=== PATIENT | male | born 1960 | race Two or more races ===

== ENCOUNTER 2018-12-20 18:08 | Inpatient (IN) | payer MEDICAID, OTHER ==
[~2018-12-20] VITALS: Ht 182.9 cm; Wt 93.9 kg
--- NOTE | 2018-12-20 18:14 | NUR ---
"[id number], FROM [place] IN THE BOX, C/O CHEST PAIN FOR YEARS AND WORST TODAY +N/V x 2, 2 SPRAY OF NITRO AND 324 ASA GIVEN BY EMS, ADMITS DRINKING TODAY" PT AAOX4, -SOB, NAD NOTED, VSS ,PENDING MD RENTERIA
[2018-12-20 18:30] LABS: BASOPHILS # (AUTO) 0.1 /CMM (0.0-0.2); BASOPHILS % (AUTO) 3.3 % (0.0-2.0); EOSINOPHILS % (AUTO) 2.2 % (0.0-6.0); HEMATOCRIT 35 % (39-51); HEMOGLOBIN 11.9 g/dL (13.5-17.5); LYMPHOCYTES # (AUTO) 1.2 /CMM (0.8-4.8); MEAN CORPUSCULAR HGB CONC 34 g/dl (31.0-36.0); MEAN CORPUSCULAR VOLUME 99 fL (80-96); MONOCYTES # (AUTO) 0.5 /CMM (0.1-1.30); NEUTROPHILS # (AUTO) 1.9 /CMM (1.8-8.9); NEUTROPHILS % (AUTO) 51.5 % (43.0-81.0); PLATELET COUNT (AUTO) 220 /CMM (150-450); RED BLOOD CELL COUNT(AUTO) 3.57 MIL/uL (4.5-6.0); WHITE BLOOD COUNT (AUTO) 3.8 K/uL (4.3-11.0)
[2018-12-20 18:38] LABS: CALCIUM, SERUM 8.7 mg/dL (8.5-10.1); CARBON DIOXIDE 26 mmol/L (21-32); CHLORIDE 110 mmol/L (98-107); CREATININE 1.6 mg/dL (0.6-1.3); GLUCOSE 120 mg/dL (74-106); POTASSIUM 4.1 mmol/L (3.5-5.1); SODIUM SERUM 146 mmol/L (136-145); UREA NITROGEN, BLOOD 15 mg/dL (7-18)
--- NOTE | 2018-12-20 21:12 | NUR ---
RECIEVED BED 314-2
--- NOTE | 2018-12-20 21:48 | NUR ---
REPORT GIVEN TO JULISSA HOFF FOR FILIBERTO; PT WILL BE TRANSPORTED TO 3RD FLOOR VIA [facility]
[2018-12-20 22:00] VITALS: BP 157/108
--- NOTE | 2018-12-20 22:20 | NUR ---
DERRICK BUILDER ADMITTING NOTES RECEIVED PT FROM ER, VIA LUIS ENRIQUE, AWAKE ALERT ORIENTEDX4, ABLE TO AMBULATE TO BED. BREATHING MINIMALLY LABORED ON ROOM AIR BUT SATING AT 98%. COMPLAINS OF CHEST PRESSURE RADIATING TO THE LEFT ARM, REPORTS HE HAS NOT TAKEN HIS BP MEDS IN ABOUT 2 MONTHS BECAUSE HE DOES NOT KNOW WHICH ONES THEY ARE. APPEARS SHAKY, REPORTS TAKING LIBRIUM IN THE MORNING, TRYING TO QUIT ALCOHOL, [facility] AT [facility]. IV ACCESS ON THE L FA18G SL. BELONGINGS LIST COMPLETED, CONNECTED TO HEART MONITOR, SR IN THE 70S. BED IN LOWEST LOCKED POSITION, CALL LIGHT WITHIN REACH AT ALL TIMES, WILL CONTINUE TO MONITOR FREQUENTLY.
[2018-12-20] MEDS ORDERED: AMLO10TA7 PO (23:12)
[2018-12-20] MEDS ORDERED: CHLO25CA10 PO (23:12)
[2018-12-20] MEDS ORDERED: FOLI1TAB16 PO (23:12)
[2018-12-20] MEDS ORDERED: LISI-603 PO (23:12)
[2018-12-20] MEDS ORDERED: HYDR12.55 PO (23:12)
[2018-12-20] MEDS ORDERED: MAGNESIUM HYDROXIDE 30 ML UDC PO PRN (23:30)
[2018-12-20] MEDS ORDERED: HYDROCODONE/APAP 5/325MG 1 EACH TABLET PO PRN (23:30)
[2018-12-20] MEDS ORDERED: ONDANSETRON HCL/PF 4 MG/2 ML VIAL IVP PRN (23:30)
[2018-12-20] MEDS ORDERED: ZOLPIDEM TARTRATE 5 MG TABLET PO PRN (23:30)
[2018-12-20] MEDS ORDERED: MAG HYDROX/AL HYDROX/SIMETH 30 ML UDC PO PRN (23:30)
[2018-12-20] MEDS ORDERED: Z GUARD REMEDY 2 OZ OINT TP PRN (23:30)
[2018-12-20] MEDS ORDERED: ACETAMINOPHEN 325 MG TABLET PO PRN (23:30)
[2018-12-21] VITALS: BP 149/102
--- NOTE | 2018-12-21 00:15 | NUR ---
HOT BRAIDER NOTES - PT BP 157/102, CONTINUES TO COMPLAIN OF CHEST PAIN, SHARMIN PAREDES, ORDERED 1GM OF NITRO OINTMENT, WILL ADMINISTER PRESCRIBED.
[2018-12-21] MEDS: IV NS 0.9% 1,000 ML IV PRN ×2 (00:19→18:33)
[2018-12-21] MEDS ORDERED: NITROGLYCERIN PACKET 1 GM PACKET ONE (00:30)
[2018-12-21] MEDS: NITROGLYCERIN 30 GM TUBE TP SCH ×3 (00:34→21:09)
[2018-12-21 04:00] VITALS: BP 132/83
--- NOTE | 2018-12-21 06:27 | NUR ---
ADVERTISING ASSISTANT MANAGER CLOSING NOTES PT REMAINS IN BED, SLEEPING EASILY AROUSED TO NAME CALL. BREATHING EVEN AND UNLABORED ON ROOM AIR. IN NO APPARENT PAIN OR DISCOMFORT AT THIS TIME. IV ACCESS ON THE L FA18G NS @75ML/HR. CONNECTED TO HEART MONITOR, SR IN THE 70S. BED IN LOWEST LOCKED POSITION, CALL LIGHT WITHIN REACH AT ALL TIMES, WILL ENDORSE TO DAY NURSE FOR CO C
[2018-12-21 07:35] LABS: BASOPHILS % (AUTO) 1.1 % (0.0-2.0); HEMATOCRIT 33 % (39-51); HEMOGLOBIN 11.4 g/dL (13.5-17.5); LYMPHOCYTES # (AUTO) 1.2 /CMM (0.8-4.8); LYMPHOCYTES % (AUTO) 39.4 % (20.0-44.0); MEAN CORPUSCULAR HGB CONC 34 g/dl (31.0-36.0); MEAN CORPUSCULAR VOLUME 99 fL (80-96); MONOCYTES # (AUTO) 0.4 /CMM (0.1-1.30); MONOCYTES % (AUTO) 12.8 % (2.0-12.0); NEUTROPHILS # (AUTO) 1.3 /CMM (1.8-8.9); NEUTROPHILS % (AUTO) 43.7 % (43.0-81.0); PLATELET COUNT (AUTO) 203 /CMM (150-450); RED BLOOD CELL COUNT(AUTO) 3.37 MIL/uL (4.5-6.0)
[2018-12-21 07:54] LABS: BILIRUBIN,TOTAL 0.6 mg/dL (0.2-1.0); CALCIUM, SERUM 8.2 mg/dL (8.5-10.1); MAGNESIUM 1.5 mg/dL (1.8-2.4); PHOSPHORUS 3.4 mg/dL (2.5-4.9); POTASSIUM 3.6 mmol/L (3.5-5.1); TOTAL PROTEIN, SERUM 6.7 g/dL (6.4-8.2)
[2018-12-21 08:00] VITALS: BP 123/87
[2018-12-21 08:03] LABS: THYROID STIMULATING HORMONE 2.355 uIU/mL (0.358-3.74)
[2018-12-21] MEDS: CHLORDIAZEPOXIDE HCL 25 MG CAPSULE PO PRN ×2 (08:23→18:51)
[2018-12-21] MEDS: FOLIC ACID 1 MG TABLET PO SCH (08:24)
[2018-12-21] MEDS: ASPIRIN EC 81 MG TABLET.DR PO SCH (08:24)
[2018-12-21] MEDS: AMLODIPINE BESYLATE 10 MG TABLET PO SCH (08:24)
[2018-12-21] MEDS: LISINOPRIL (10MG) 10 MG TABLET PO SCH (08:25)
[2018-12-21] MEDS: METOPROLOL TARTRATE 50 MG TABLET PO SCH ×2 (08:25→21:09)
[2018-12-21] MEDS ORDERED: METOPROLOL TARTRATE 25 MG TABLET PO SCH (09:00)
[2018-12-21 09:23] LABS: MAGNESIUM 1.5 mg/dL (1.8-2.4)
--- NOTE | 2018-12-21 09:55 | NUR ---
RN NOTES INFORMED PHARMACY THAT NITROL OINTMENT NOT IN PATIENT CASSETTE. WILL CONTINUE TO FOLLOW UP.
[2018-12-21] MEDS: Magnesium 1GM/D5W 100ML PREMIX 100 ML IV SCH ×2 (11:02→12:04)
--- NOTE | 2018-12-21 11:14 | NUR ---
RN NOTES 12/21/18 0030 NITRO ALREADY GIVEN BY MANUAL WINDER NURSE.
--- NOTE | 2018-12-21 14:40 | NUR ---
RN NOTES PT SENT DOWN FOR [facility].
[2018-12-21] MEDS ORDERED: CT SWABBABLE VALVE TRANS SET 1 EA INFUS.SET MC ONE (15:40)
[2018-12-21] MEDS ORDERED: IOHEXOL-350 100 ML VIAL IV ONE (15:40)
[2018-12-21] MEDS ORDERED: NITROGLYCERIN 0.4 MG/TAB BOTTLE ONE (15:40)
[2018-12-21] MEDS ORDERED: IV NS 0.9% 250 ML IV ONE (15:40)
[2018-12-21] MEDS ORDERED: METOPROLOL TARTRATE INJ 5 MG/5 ML AMPUL ONE ×2 (15:40→16:00)
[2018-12-21 16:00] VITALS: BP 146/84
--- NOTE | 2018-12-21 19:00 | NUR ---
MS RN OPENING NOTES Patient received in bed, alert, oriented x 4. Breathing even and unlabored. Not in any distress, on room air. Peripheral IV infusing at 75mL/hr. No complaints of pain at this time. Safety measures in place; call light within reach, bed in low, locked position. Will continue to monitor accordingly
--- NOTE | 2018-12-21 19:01 | NUR ---
RN CLOSING NOTES PT AWAKE AND RESTING IN BED. PATIENT GIVEN LIBRIUM X2 TODAY FOR ALCOHOL WITHDRAWAL SYMPTOMS. PT HAS LEFT FA #18 IV INTACT AND PATENT, AND RIGHT AC #18 IV INTACT AND RUNNING NS @75ML/HR. SAFETY PRECAUTIONS IN PLACE, BED IN LOWEST LOCKED POSITION, X2 SIDE RAILS UP AND CALL LIGHT WITHIN REACH. WILL ENDORSE TO INDIVIDUAL SMALL GROUP INSTRUCTOR NURSE FOR CONTINUITY OF CARE.
[2018-12-21 20:00] VITALS: BP 150/80
[2018-12-21] MEDS: ATORVASTATIN 10 MG TABLET PO SCH (21:09)
[2018-12-22 04:00] VITALS: BP 146/95
[2018-12-22 06:41] LABS: CALCIUM, SERUM 8.2 mg/dL (8.5-10.1); MAGNESIUM 1.6 mg/dL (1.8-2.4)
--- NOTE | 2018-12-22 07:18 | NUR ---
Nurse Notes: received report from the night nurse Alyssa Lopez RN, resting in bed. IV is infusing NS at 75 cc per hour. Patient states takes Librium every 6 hours, medications help the pain. No request for pain medications.
--- NOTE | 2018-12-22 07:42 | NUR ---
RN CLOSING NOTES PATIENT SLEEPING IN BED, EASY TO AROUSE. BREATHING EVEN AND UNLABORED. NOT IN ANY DISTRESS. PATIENT HAS LEFT FA #18 IV INTACT AND PATENT, AND RIGHT AC #18 IV INTACT AND PATENT WITH PERIPHERAL IV RUNNING NS @75ML/HR. SAFETY PRECAUTIONS IN PLACE, BED IN LOWEST LOCKED POSITION, X2 SIDE RAILS UP AND CALL LIGHT WITHIN REACH. ENDORSED FILIBERTO TO AM SHIFT RN
[2018-12-22 08:00] VITALS: BP 139/84
[2018-12-22] MEDS: LISINOPRIL (10MG) 10 MG TABLET PO SCH (09:03)
[2018-12-22] MEDS: AMLODIPINE BESYLATE 10 MG TABLET PO SCH (09:03)
[2018-12-22] MEDS: ASPIRIN EC 81 MG TABLET.DR PO SCH (09:03)
[2018-12-22] MEDS: FOLIC ACID 1 MG TABLET PO SCH (09:04)
[2018-12-22] MEDS: METOPROLOL TARTRATE 50 MG TABLET PO SCH ×2 (09:04→21:04)
[2018-12-22] MEDS: CHLORDIAZEPOXIDE HCL 25 MG CAPSULE PO PRN ×2 (09:10→18:46)
[2018-12-22] MEDS: NITROGLYCERIN 30 GM TUBE TP SCH ×2 (09:11→21:05)
[2018-12-22] MEDS: IV NS 0.9% 1,000 ML IV PRN (09:20)
[2018-12-22] MEDS: Magnesium 1GM/D5W 100ML PREMIX 100 ML IV SCH ×2 (12:05→13:12)
--- NOTE | 2018-12-22 12:05 | NUR ---
Nurse Notes: started on magnesium bolus x 2, 1 hr each, IV is in the right antecubital, it is not in the right forearm. left arm is in the forearm.
[2018-12-22 16:00] VITALS: BP 125/93
--- NOTE | 2018-12-22 18:40 | NUR ---
Nurse Notes: assisted to the bathroom, using walker, patient stated feels wobbly, patient had bowel movement, stool was not observed. patient flushed it.
--- NOTE | 2018-12-22 19:17 | NUR ---
Nurse Notes: Dr Cox is here on floor, patient librium needs to be ordered every 6 hours scheduled, and not prn. Patient states gets shakiy.
--- NOTE | 2018-12-22 19:25 | NUR ---
Nurse Notes: Report given the the night nurse, Lynne RN, Librium is not scheduled, was seen by Dr Cox. patient still having chest pain.
[2018-12-22] MEDS ORDERED: ALPRAZOLAM 0.25 MG TABLET PO PRN (19:30)
--- NOTE | 2018-12-22 19:30 | NUR ---
MS RN NOTES RECEIVED ON BED A/O X4,NO SOB BUT STILL HAVING CHEST PAIN.SEEN AND EXAMINED BY DR RESENDIZ,WITH NEW ORDERS NOTED.IVF DISCONTINUED ORDERED.NITRO PATCH IN PLACE ON LEFT CHEST WALL.CALL LIGHT IN REACH,NEEDS ANTICIPATED.
[2018-12-22 20:00] VITALS: BP 127/85
[2018-12-22 20:43] VITALS: BP 127/85
--- NOTE | 2018-12-22 21:00 | NUR ---
MS RN NOTES DUE PO MEDS GIVEN.NITRO PATCH 1GM TO RIGHT CHEST WALL ORDERED.
[2018-12-22] MEDS: ATORVASTATIN 10 MG TABLET PO SCH (21:07)
[2018-12-23] MEDS: CHLORDIAZEPOXIDE HCL 25 MG CAPSULE PO SCH ×3 (00:10→11:10)
[2018-12-23 05:48] VITALS: BP 115/77
--- NOTE | 2018-12-23 06:38 | NUR ---
MS RN NOTES SLEPT WELL WITH LIBRIUM.DENIES CHEST PAIN.SALINE LOCK,IV DISCONTINUE BY DR RESENDIZ.POSSIBLE DISCHARGE HOME TODAY.WILL ENDORSE TO DAY NURSE FOR FILIBERTO.
--- NOTE | 2018-12-23 07:23 | NUR ---
RN OPENING NOTE PT WAS RECEIVED IN BED AT LOWEST AND LOCKED POSITION WITH SIDE RAILS UP X2, A/O X4 BREATHING EVEN AND UNLABORED ON RA, NO S/S OF ANY DISTRESS OR PAIN, IV IS PATENT AND INTACT, D/C PLANNING, SAFETY PRECAUTIONS IN PLACE, CALL LIGHT WITHIN REACH, WILL MONITOR PT ACCORDINGLY
[2018-12-23 08:00] VITALS: BP 125/85
[2018-12-23] MEDS: FOLIC ACID 1 MG TABLET PO SCH (08:13)
[2018-12-23] MEDS: ASPIRIN EC 81 MG TABLET.DR PO SCH (08:13)
[2018-12-23] MEDS: AMLODIPINE BESYLATE 10 MG TABLET PO SCH (08:14)
[2018-12-23] MEDS: METOPROLOL TARTRATE 50 MG TABLET PO SCH (08:14)
[2018-12-23] MEDS: LISINOPRIL (10MG) 10 MG TABLET PO SCH (08:14)
[2018-12-23 08:15] VITALS: BP 125/85
[2018-12-23] MEDS: NITROGLYCERIN 30 GM TUBE TP SCH (08:15)
--- NOTE | 2018-12-23 12:49 | NUR ---
DISCHARGE NOTE PT WAS D/C AT THIS TIME BACK IN MEDICALLY STABLE CONDITION. IV AND ID BAND WERE REMOVED. ALL EXITCARE, D/C PAPERWORK, AND BELONGINGS LIST WERE SIGNED, DISCUSSED AND HANDED TO THE PT. ALL BELONGINGS WERE TAKEN BY HIM WELL.MEDICATIONS WERE RETURNED TO HIM. SKIN WAS NOTED TO BE INTACT. ALL NEEDS WERE ATTENDED TO DURING HIS STAY. PT LEFT AT THIS TIME WHERE HE WAS WALKED DOWN BY ME. HE WAS GIVEN TAP CARD TO RIDE THE BUS BACK HOME AT THIS TIME
== END 2018-12-23 13:00 | disposition home or self-care (01) | DRG 241 ==
LOC: ER 18:24 → TELE 21:20 → MED 12-21 08:02
PROVIDERS: ADMIT Hospitalist; ATTEND Internal Medicine
DX: K29.70 Gastritis, unspecified, without bleeding (principal); N17.0 Acute kidney failure with tubular necrosis; E87.0 Hyperosmolality and hypernatremia; I12.9 Hypertensive chronic kidney disease with stage 1 through stage 4 chronic kidney disease, or unspecified chronic kidney disease; N18.9 Chronic kidney disease, unspecified; J98.11 Atelectasis; F41.9 Anxiety disorder, unspecified; Z79.899 Other long term (current) drug therapy; D53.9 Nutritional anemia, unspecified; F10.229 Alcohol dependence with intoxication, unspecified; F10.239 Alcohol dependence with withdrawal, unspecified; Y90.9 Presence of alcohol in blood, level not specified
CPT/HCPCS: 36415; 71045-TC; 75574; 80048-TC; 80053-TC; 80061-TC; 82728-TC; 83540-TC; 83735-TC; 84100-TC; 84443-TC; 84484-TC; 85025-TC; 85730-TC; 87081-TC; 93307-TC; G0378; J3475; J3490; J7030; J7050; Q9967

== ENCOUNTER 2019-05-01 19:08 | Emergency (ER) | payer MEDICAID, OTHER ==
[~2019-05-01] VITALS: Ht 185.4 cm; Wt 100.2 kg
[~2019-05-01 19:08] MED LIST: AMLO10TA7 PO; CHLO25CA10 PO; FOLI1TAB16 PO; LISI-603 PO
--- NOTE | 2019-05-01 19:33 | NUR ---
PT PRESENTED TO THE ER WITH A C/O L SIDED SHARP CP THAT RADIATES TO THE LUE. PT STATED THAT HIS BILATERAL HANDS ARE NUMB. PT ALSO STATED THAT HE IS HAVING BLOOD IN HIS STOOL AND HAS DIARRHEA. PT STATED THAT HE DOES NOT SMOKE, BUT HAS PROBLEMS WITH ALCOHOL. PT STATED THAT HE HAS LOST A LOT OF WEIGHT IN THE LAST YEAR AND HAS LOST HIS APPETITE. PT WAS PLACED ON THE MONITOR AND CONTINUOUS PULSE OX. IV WAS STARTED IN [facility] AND BLOOD WAS DRAWN AND SENT TO LAB. WILL CONTINUE TO MONITOR THE PT.
[2019-05-01 19:37] VITALS: BP 101/67
[2019-05-01 19:40] LABS: BASOPHILS # (AUTO) 0.1 /CMM (0.0-0.2); BASOPHILS % (AUTO) 2.4 % (0.0-2.0); EOSINOPHILS % (AUTO) 2.4 % (0.0-6.0); HEMATOCRIT 38 % (39-51); LYMPHOCYTES # (AUTO) 2.1 /CMM (0.8-4.8); LYMPHOCYTES % (AUTO) 42.1 % (20.0-44.0); MEAN CORPUSCULAR HGB CONC 34 g/dl (31.0-36.0); MEAN CORPUSCULAR VOLUME 98 fL (80-96); MONOCYTES # (AUTO) 0.5 /CMM (0.1-1.30); MONOCYTES % (AUTO) 10.5 % (2.0-12.0); NEUTROPHILS # (AUTO) 2.1 /CMM (1.8-8.9); NEUTROPHILS % (AUTO) 42.6 % (43.0-81.0); PLATELET COUNT (AUTO) 147 /CMM (150-450); RED BLOOD CELL COUNT(AUTO) 3.88 MIL/uL (4.5-6.0); WHITE BLOOD COUNT (AUTO) 4.9 K/uL (4.3-11.0)
--- NOTE | 2019-05-01 19:44 | NUR ---
DR ESPOSITO IS AT THE BEDSIDE.
[2019-05-01 19:52] LABS: ALBUMIN 3.5 g/dL (3.4-5.0); CALCIUM, SERUM 8.4 mg/dL (8.5-10.1); CARBON DIOXIDE 31 mmol/L (21-32); CHLORIDE 101 mmol/L (98-107); CREATININE 1.3 mg/dL (0.6-1.3); GLUCOSE 90 mg/dL (74-106); POTASSIUM 3.2 mmol/L (3.5-5.1); SODIUM SERUM 142 mmol/L (136-145); UREA NITROGEN, BLOOD 18 mg/dL (7-18)
--- NOTE | 2019-05-01 20:10 | NUR ---
CXR IN PROGRESS AT THE BEDSIDE
--- NOTE | 2019-05-01 20:23 | NUR ---
US TECH IS AT THE BEDSIDE FOR VENOUS DOPPLER
--- NOTE | 2019-05-01 21:00 | NUR ---
CALLED [facility]: CXR READ.
[2019-05-01 21:15] LABS: ALANINE AMINOTRANSFERASE 61 U/L (12-78); ALKALINE PHOSPHATASE 66 U/L (46-116); ASPARTATE AMINOTRANSFERASE 91 U/L (15-37); B-TYPE NATRIURETIC PEPTIDE 136 PG/ML (0-125); BILIRUBIN,DIRECT 0.2 mg/dL (0.0-0.2); BILIRUBIN,TOTAL 0.6 mg/dL (0.2-1.0); TOTAL PROTEIN, SERUM 7.3 g/dL (6.4-8.2)
--- NOTE | 2019-05-01 21:41 | NUR ---
DR ESPOSITO IS AT THE BEDSIDE SPEAKING TO THE PT.
--- NOTE | 2019-05-01 21:51 | NUR ---
HOMELESS WAIVER IS IN THE CHART. PT IS WAITING IN THE LOBBY FOR TAP CARD AND HOMELESS RESOURCES.
--- NOTE | 2019-05-01 21:51 | NUR ---
IV removed. Catheter intact and site benign. Pressure and 4x4 applied to site. No bleeding noted. Patient discharged to home in stable condition. Written and verbal after care instructions given. Patient verbalizes understanding of instruction. PT REC'D A COPY OF HIS IMAGING FINDINGS AND ALL LABS. PT AMBULATED OUT WITH A STEADY GAIT. VSS.
--- NOTE | 2019-05-01 22:21 | NUR ---
PT LEFT BEFORE REC'ING THE TAP CARD. CALLED FOR PT IN LOBBY AND OUTSIDE, BUT WAS UNABLE TO FIND PT.
== END 2019-05-01 21:55 | disposition home or self-care (01) ==
LOC: ER 19:15
DX: R07.89 Other chest pain (principal); I10 Essential (primary) hypertension; E78.00 Pure hypercholesterolemia, unspecified; Z79.899 Other long term (current) drug therapy
CPT/HCPCS: 36415; 71045-TC; 80048-TC; 80076-TC; 83880; 84484-TC; 85025-TC; 85730-TC; 93971-TC

== ENCOUNTER 2019-07-09 14:49 | Emergency (ER) | payer OTHER ==
[~2019-07-09] VITALS: Ht 182.9 cm; Wt 86.2 kg
--- NOTE | 2019-07-09 15:09 | NUR ---
PT REC'D TO ER C/O CP ON AND OFF FOR YEARS TODAY PRESSURE AND NUMBNESS FINGERS SR EKG AWAITING EVALUATION BY ER PROVIDER.
--- NOTE | 2019-07-09 15:42 | NUR ---
IV STARTED 20G RT AC LABS DRAWN SENT TO LAB
[2019-07-09 15:45] LABS: BASOPHILS # (AUTO) 0.2 /CMM (0.0-0.2); BASOPHILS % (AUTO) 2.7 % (0.0-2.0); EOSINOPHILS % (AUTO) 4.6 % (0.0-6.0); HEMATOCRIT 39 % (39-51); HEMOGLOBIN 13.2 g/dL (13.5-17.5); LYMPHOCYTES # (AUTO) 2.3 /CMM (0.8-4.8); LYMPHOCYTES % (AUTO) 35.8 % (20.0-44.0); MEAN CORPUSCULAR HGB CONC 34 g/dl (31.0-36.0); MEAN CORPUSCULAR VOLUME 102 fL (80-96); MONOCYTES # (AUTO) 0.5 /CMM (0.1-1.30); MONOCYTES % (AUTO) 7.1 % (2.0-12.0); NEUTROPHILS # (AUTO) 3.2 /CMM (1.8-8.9); NEUTROPHILS % (AUTO) 49.8 % (43.0-81.0); PLATELET COUNT (AUTO) 240 /CMM (150-450); RED BLOOD CELL COUNT(AUTO) 3.79 MIL/uL (4.5-6.0); WHITE BLOOD COUNT (AUTO) 6.4 K/uL (4.3-11.0)
[2019-07-09 15:53] LABS: CALCIUM, SERUM 9.3 mg/dL (8.5-10.1); CARBON DIOXIDE 31 mmol/L (21-32); CHLORIDE 100 mmol/L (98-107); CREATININE 1.5 mg/dL (0.6-1.3); GLUCOSE 93 mg/dL (74-106); POTASSIUM 4.2 mmol/L (3.5-5.1); SODIUM SERUM 138 mmol/L (136-145); UREA NITROGEN, BLOOD 15 mg/dL (7-18)
[2019-07-09 16:09] LABS: ALANINE AMINOTRANSFERASE 74 U/L (12-78); ALBUMIN 4.1 g/dL (3.4-5.0); ALKALINE PHOSPHATASE 77 U/L (46-116); ASPARTATE AMINOTRANSFERASE 73 U/L (15-37); BILIRUBIN,DIRECT 0.1 mg/dL (0.0-0.2); BILIRUBIN,TOTAL 0.4 mg/dL (0.2-1.0); TOTAL PROTEIN, SERUM 8.1 g/dL (6.4-8.2)
--- NOTE | 2019-07-09 17:13 | NUR ---
ultrasound of rt leg begative AWAITING EVALUATION BY ER PROVIDER.
[2019-07-09 17:48] VITALS: BP 133/72
--- NOTE | 2019-07-09 17:48 | NUR ---
PT. VERBALIZED UNDERSTANDING OF AFTERCARE INSTRUCTIONS.IV removed. Catheter intact and site benign. Pressure and 4x4 applied to site. No bleeding noted.
== END 2019-07-09 17:49 | disposition home or self-care (01) ==
LOC: ER 14:50
DX: R60.0 Localized edema (principal); K92.2 Gastrointestinal hemorrhage, unspecified; M54.10 Radiculopathy, site unspecified; I10 Essential (primary) hypertension; F32.9 Major depressive disorder, single episode, unspecified; Z79.899 Other long term (current) drug therapy
CPT/HCPCS: 36415; 71045-TC; 80048-TC; 80076-TC; 84484-TC; 85025-TC; 85730-TC; 86850-TC; 93970-TC

== ENCOUNTER 2020-06-03 16:54 | Inpatient (IN) | payer OTHER ==
[~2020-06-03] VITALS: Ht 182.9 cm; Wt 95.3 kg
[~2020-06-03 16:54] MED LIST changes: +AMLO-213 PO; -AMLO10TA7 PO; -LISI-603 PO; +LISI20TA30 PO
--- NOTE | 2020-06-03 16:54 | NUR ---
PT [id number] PT STS "FEEL LIKE MY THROAT IS CLOSING" PT IS AAOX4, NOT IN RESPIRATORY DISTRESS, HOOKED TO RESIDENTIAL DIRECT SUPPORT PROFESSIONAL, KEPT RESTED AND COMFORTABLE. WILL CONTINUE TO MONITOR.
--- NOTE | 2020-06-03 17:05 | NUR ---
VICTORINA ANDREWS CEMENT OR CONCRETE FINISHING SUPERVISOR AT BEDSIDE FOR EVAL.
[2020-06-03] MEDS ORDERED: methylPREDNISolone SOD SUCC 125 MG/2ML VIAL ONE (17:08)
[2020-06-03] MEDS ORDERED: diphenhydrAMINE HCL 50 MG/ML VIAL ONE ×2 (17:08→23:16)
[2020-06-03] MEDS ORDERED: FAMOTIDINE/PF INJ 20 MG/2 ML VIAL IV ONE ×3 (17:09→23:17)
--- NOTE | 2020-06-03 17:10 | NUR ---
IV LINE ESTABLISHED.
[2020-06-03] MEDS ORDERED: LORAZEPAM INJ 2 MG/ML VIAL ONE ×2 (17:22→21:42)
[2020-06-03] MEDS ORDERED: APIX2.5T PO (17:28)
[2020-06-03] MEDS ORDERED: MONT10TA22 PO (17:28)
[2020-06-03] MEDS ORDERED: ALBU18HF2 IH (17:28)
[2020-06-03] MEDS ORDERED: BECL10.62 IH (17:28)
[2020-06-03] MEDS ORDERED: HYDR12.55 PO (17:28)
[2020-06-03] MEDS ORDERED: CEFTRIAXONE 1GM BAG (ER ONLY) 1 GM/50 ML PIGGYBACK IV ONE (17:30)
[2020-06-03] MEDS ORDERED: methylPREDNISolone SOD SUCC 125 MG/2ML VIAL IV ONE (17:30)
[2020-06-03] MEDS ORDERED: IV NS 0.9% 1,000 ML IV ONE ×2 (17:30→22:00)
[2020-06-03] MEDS ORDERED: diphenhydrAMINE HCL 50 MG/ML VIAL IV ONE ×2 (17:30→23:30)
[2020-06-03] MEDS ORDERED: LORAZEPAM INJ 2 MG/ML VIAL IV ONE ×2 (17:30→22:00)
[2020-06-03] MEDS ORDERED: CEFTRIAXONE 1GM BAG (ER ONLY) 50 ML IV ONE (17:34)
[2020-06-03 17:36] LABS: BASOPHILS # (AUTO) 0.1 /CMM (0.0-0.2); BASOPHILS % (AUTO) 1.2 % (0.0-2.0); EOSINOPHILS % (AUTO) 0.6 % (0.0-6.0); HEMATOCRIT 43 % (39-51); HEMOGLOBIN 14.5 g/dL (13.5-17.5); LYMPHOCYTES # (AUTO) 1.3 /CMM (0.8-4.8); MEAN CORPUSCULAR HGB CONC 34 g/dl (31.0-36.0); MEAN CORPUSCULAR VOLUME 100 fL (80-96); MONOCYTES # (AUTO) 0.5 /CMM (0.1-1.30); MONOCYTES % (AUTO) 8.7 % (2.0-12.0); NEUTROPHILS # (AUTO) 4.1 /CMM (1.8-8.9); NEUTROPHILS % (AUTO) 67.5 % (43.0-81.0); PLATELET COUNT (AUTO) 154 /CMM (150-450); RED BLOOD CELL COUNT(AUTO) 4.34 MIL/uL (4.5-6.0); WHITE BLOOD COUNT (AUTO) 6.1 K/uL (4.3-11.0)
--- NOTE | 2020-06-03 17:40 | NUR ---
COVID SPECIMEN OBTAINED AND SENT TO LAB.
[2020-06-03 18:12] LABS: ALANINE AMINOTRANSFERASE 99 U/L (12-78); ALBUMIN 4.1 g/dL (3.4-5.0); ALKALINE PHOSPHATASE 112 U/L (46-116); ASPARTATE AMINOTRANSFERASE 133 U/L (15-37); BILIRUBIN,DIRECT 0.4 mg/dL (0.0-0.2); BILIRUBIN,TOTAL 1.2 mg/dL (0.2-1.0); CARBON DIOXIDE 24 mmol/L (21-32); CHLORIDE 97 mmol/L (98-107); CREATININE 1.6 mg/dL (0.6-1.3); GLUCOSE 69 mg/dL (74-106); POTASSIUM 3.3 mmol/L (3.5-5.1); SODIUM SERUM 138 mmol/L (136-145); TOTAL PROTEIN, SERUM 8.5 g/dL (6.4-8.2); UREA NITROGEN, BLOOD 18 mg/dL (7-18)
--- NOTE | 2020-06-03 18:20 | NUR ---
RECEIVED RESULT FROM LAB: RAPID COVID NEGATIVE
[2020-06-03] MEDS ORDERED: CYAN-51 PO (18:28)
--- NOTE | 2020-06-03 18:33 | NUR ---
PAGED [facility].
--- NOTE | 2020-06-03 19:24 | NUR ---
[facility] CALLED FOR HIGHER LEVEL OF CARE. NO BEDS AVAILABLE.
--- NOTE | 2020-06-03 19:44 | NUR ---
PATIENT UNABLE TO PROVIDE URINE AT THIS TIME. WILL TRY AGAIN.
--- NOTE | 2020-06-03 19:54 | NUR ---
[facility] CALLED FOR HIGHER LEVEL OF CARE. NO BEDS AVAILABLE. FACESHEET AND CLINICALS FAXED TO [phone]
[2020-06-03] MEDS ORDERED: CLINDAMYCIN 900 MG/6 ML VIAL ONE (19:59)
[2020-06-03] MEDS ORDERED: CLINDAMYCIN IV RTU IN D5W 900 MG/50 ML PIGGYBACK IV ONE (20:00)
--- NOTE | 2020-06-03 20:12 | NUR ---
SPOKE WITH SANA FROM [facility] TRANSFER LINE, WILL FAX CLINICAL INFORMATION PER REQUEST AT THIS TIME
--- NOTE | 2020-06-03 20:22 | NUR ---
SPOKE WITH SUREKHA FROM [facility], NO ENT MOLD MAINTENANCE TECHNICIAN
--- NOTE | 2020-06-03 21:07 | NUR ---
CALL BACK FROM [facility] TRANSFER VICTOR. NO ICU BED AVAILABLE FOR PT.
--- NOTE | 2020-06-03 21:07 | NUR ---
Indra mccormick in [facility] - 06/03/20 at 2150 by DANIELLE CALL BACK FROM [facility]. ICU BED AVAILABLE FOR PT.
--- NOTE | 2020-06-03 21:11 | NUR ---
ATTEMPTED TO CALL [facility]. NO ANSWER
--- NOTE | 2020-06-03 21:20 | NUR ---
NOTED HYPERTENSION AND TACHYCARDIA. PT DENIES CP/SOB AT THIS TIME. DR. KOENIG MADE AWARE
--- NOTE | 2020-06-03 21:53 | NUR ---
[facility] ([facility] CALLED FOR HIGHER LEVEL OF CARE. ONLY ACCEPTING BURN OR OB.
[2020-06-03] MEDS ORDERED: CLONIDINE HCL 0.1 MG TABLET ONE (21:57)
--- NOTE | 2020-06-03 21:57 | NUR ---
[facility] CALLED FOR HIGHER LEVEL OF CARE. NO ENT AVAILABLE.
[2020-06-03] MEDS ORDERED: CLONIDINE HCL 0.1 MG TABLET PO ONE (22:00)
[2020-06-03] MEDS ORDERED: diphenhydrAMINE HCL 50 MG/ML VIAL IV SCH (23:00)
[2020-06-03] MEDS ORDERED: IV D5/0.45 NACL 1,000 ML IV ONE (23:00)
--- NOTE | 2020-06-03 23:24 | NUR ---
INFORMED DR. KOENIG BENADRYL 50MG IV WAS ADMINISTERED PRIOR TO DC ORDERS. PT STILL ON CONTINOUS FILAMENT TESTER AND PULSE OX. RESPIRATIONS EVEN AND UNLABORED. NO ACUTE DISTRESS NOTED AT THIS TIME. WILL CONTINUE TO MONITOR
[2020-06-03] MEDS: FAMOTIDINE/PF INJ 20 MG/2 ML VIAL IV SCH (23:26)
[2020-06-04] VITALS (30 sets, daily range): BP systolic 69–203; BP diastolic 43–187
[2020-06-04] MEDS ORDERED: methylPREDNISolone SOD SUCC 125 MG/2ML VIAL IV SCH
--- NOTE | 2020-06-04 01:50 | NUR ---
NOTED TACHYCARDIA AND DIAPHORETIC. ALSO NOTED MORE NOTICABLE "GURGLING SOUND" WHILE PATIENT IS SPEAKING. PT ABLE TO SPEAK IN FULL SENTENCES, O2 SAT 98% ROOM AIR. RESPIRATIONS EVEN AND UNLABORED. NO ACUTE DISTRESS NOTED AT THIS TIME. DR. ARREOLA AT BEDSIDE FOR EVALUATION. PT STILL ON MONITOR, WILL CONTINUE TO MONITOR
[2020-06-04] MEDS ORDERED: LORAZEPAM INJ 2 MG/ML VIAL ONE ×4 (01:53→05:53)
[2020-06-04] MEDS ORDERED: LORAZEPAM INJ 2 MG/ML VIAL IV ONE ×3 (02:00→06:00)
--- NOTE | 2020-06-04 03:00 | NUR ---
PT PULLED OUT IV. IV removed. Catheter intact and site benign. Pressure and 4x4 applied to site. No bleeding noted. New IV inserted L AC 18g
--- NOTE | 2020-06-04 04:12 | NUR ---
rec'd a call from Alex at [facility]. ETA fo [facility] at 0730
--- NOTE | 2020-06-04 05:40 | NUR ---
PT CONSTANTLY ATTEMPTING TO GET OUT OF BED. NOTED TREMORS. DR. ARREOLA MADE AWARE
[2020-06-04] MEDS ORDERED: OLANZAPINE 10 MG VIAL IM ONE ×2 (06:13→06:30)
--- NOTE | 2020-06-04 06:35 | NUR ---
PT AWAKE, SPEAKING INCOHERENTLY. CONTANTLY ATTEMPTING TO GET OUT OF BED BUT REDIRECTABLE. NOTED TREMORS, TACHYCARDIA, AND HYPERTENSION. PT ALSO DIAPHORETIC. DR. MARCUS MADE AWARE. PT STILL ON CONTINOUS INSURANCE AGENTS SUPERVISOR AND PULSE OX, WILL CONTINUE TO MONITOR
[2020-06-04] MEDS ORDERED: HALOPERIDOL LACTATE INJ 5 MG/ML VIAL ONE (06:39)
[2020-06-04] MEDS ORDERED: HALOPERIDOL LACTATE INJ 5 MG/ML VIAL IM ONE (07:00)
--- NOTE | 2020-06-04 07:19 | NUR ---
CALLED [facility], PAGED DR. HOLLIDAY
--- NOTE | 2020-06-04 07:28 | NUR ---
REPORT GIVEN TO LUIS EDUARDO OLMSTEAD FOR FILIBERTO
--- NOTE | 2020-06-04 07:30 | NUR ---
PATIENT SEEN AND EXAMINED BY DR. HOLLIDAY.
--- NOTE | 2020-06-04 07:46 | NUR ---
ICU 259
--- NOTE | 2020-06-04 07:46 | NUR ---
PATIENT AROUSABLE TO STIMULI. ABLE TO VERBALIZE NEEDS. INSERTED A SANDHU CATH FR 16, ORDERED BY DR. MARCUS. PATIENT KEPT COMFORTABLE.
--- NOTE | 2020-06-04 07:49 | NUR ---
PATIENT IS ON 3LPM VIA NC WITH SPO2 OF 99%. NO RESPIRATORY DISTRESS NOTED.
--- NOTE | 2020-06-04 07:59 | NUR ---
REPORT GIVEN TO LUIS EDUARDO FORD FOR FILIBERTO
--- NOTE | 2020-06-04 07:59 | NUR ---
Indra mccormick in [facility] - 06/04/20 at 0811 by BILLIE TASKEN UP TO ASSIGNED ROOM
[2020-06-04] MEDS ORDERED: MAGNESIUM HYDROXIDE 30 ML UDC PO PRN (08:00)
[2020-06-04] MEDS ORDERED: LORAZEPAM INJ 2 MG/ML VIAL IV PRN (08:00)
[2020-06-04] MEDS ORDERED: ZOLPIDEM TARTRATE 5 MG TABLET PO PRN (08:00)
[2020-06-04] MEDS ORDERED: MAG HYDROX/AL HYDROX/SIMETH 30 ML UDC PO PRN (08:00)
[2020-06-04] MEDS ORDERED: ONDANSETRON HCL/PF 4 MG/2 ML VIAL IVP PRN (08:00)
[2020-06-04] MEDS ORDERED: Z GUARD REMEDY 2 OZ OINT TP PRN (08:00)
[2020-06-04] MEDS ORDERED: HYDROCODONE/APAP 5/325MG TABLET PO PRN (08:00)
[2020-06-04] MEDS ORDERED: MORPHINE SULFATE INJ 2 MG/ML DISP.SYRIN IV PRN (08:00)
--- NOTE | 2020-06-04 08:33 | NUR ---
PATIENT TRANSFERRED TO ROOM 250 VIA ACLS PROTOCOL. IN STABLE CONDITION. ON 3LPM VIA NC WITH SPO2 OF 98%. BELONGINGS TRANSFERRED WELL. ENDORSED TO LOGAN HOFF.
--- NOTE | 2020-06-04 08:45 | NUR ---
RN NOTES PT RECEIVED FROM ER IN ROOM 250, RESTLESS AND CONFUSED, GARBLED SPEECH, TRYING TO GET OUT OF THE BED, KICKING AND PULLING AN PUSHING, HR IN 110'S , ST, SBP IN 190'S , DR MIYA SNEED, ORDER RECEIVED FOR SOFT RESTRAINS , SANDHU DRINING TO GRAVITY, L HAND AND L AC IV SITES CLEAN, DRY AND INTACT, SR UP x3, CALL LIGHT WITHIN EASY REACH, BED LOCKED AND IN LOWEST POSITION, CONTINUE TO MONITOR.
[2020-06-04] MEDS ORDERED: CLINDAMYCIN 900 MG in IV D5W 100 ML IV ONE (09:00)
[2020-06-04] MEDS ORDERED: ZOSYN IVPB 3.375 G in IV D5W 50ml IV ONE (09:00)
[2020-06-04] MEDS: LORAZEPAM INJ 2 MG/ML VIAL IV PRN ×5 (09:05→23:53)
[2020-06-04] MEDS: FAMOTIDINE/PF INJ 20 MG/2 ML VIAL IV SCH ×2 (09:05→20:28)
[2020-06-04] MEDS: methylPREDNISolone SOD SUCC 125 MG/2ML VIAL IV SCH ×4 (09:05→20:28)
[2020-06-04] MEDS: Potassium Chloride 10 MEQ in IV D5/0.45 NACL 1,000 ML IV SCH ×2 (09:35→18:36)
--- NOTE | 2020-06-04 10:00 | NUR ---
RN NOTES DR HOLLIDAY NOTIFED REGARDING HIGH BP.
[2020-06-04] MEDS ORDERED: hydrALAZINE HCL IV 20 MG VIAL IV PRN (12:00)
[2020-06-04] MEDS: ENALAPRILAT DIHYD. (2.5MG/2ML) 1.25 MG/ML VIAL IV PRN ×2 (14:02→20:42)
[2020-06-04] MEDS: PIPERACILLIN /TAZOBACTAM 3.375 G in IV D5W 100 ML IV SCH (16:49)
[2020-06-04] MEDS: CLONIDINE HCL 0.3 MG/24H PTWK 1 EA PATCH TD SCH (16:49)
[2020-06-04] MEDS ORDERED: methylPREDNISolone SOD SUCC 125 MG/2ML VIAL IV ONE (17:00)
--- NOTE | 2020-06-04 17:00 | NUR ---
RN NOTES PT'S BLOOD PRESSURE STILL HIGH, DR HOLLIDAY AND MARYBETH SNEED .
--- NOTE | 2020-06-04 18:54 | NUR ---
RN CLOSING NOTES PATIENT IS SENSITIVE TO CHELO AND TITRATED TO 1.1 THIS SHIFT, PRECEDEX NOW AT 0.3, SIMV FAILED THIS MORNING SO BACK TO AC SETTINGS WITH LOWER FI02 OF 28% AND PEEP OF 5. URINE OUTPUT IS BORDERLINE. DRESSINGS CHANGED AND PHOTOS TAKEN. WOUND CARE CONSULT. TOLERATING FEEDS. NO OTHER CHANGES. ENDORSED TO NIGHT RN. Addendum: 06/04/20 at 1900 by CORINA SWAIN RN PLS DISREGARD ABOVE CHARTING. CHARTED FOR THE WRONG PATIENT.
--- NOTE | 2020-06-04 19:03 | NUR ---
RN CLOSING NOTES PATIENT STABLE, LESS AGITATED, BILATERAL SOFT WRIST RESTRAINT ON FOR PATIENT'S SAFETY, BED ALARMS ON, IVF RUNNING AT 100ML/HR, MD AWARE OF BP, SIDE RAIL UP X3, BED LOCKED IN LOWEST POSITION, NO, S/S OF SEIZURE NOTED, WILL ENDORSE CONTINUITY OF CARE TO NIGHT NURSE.
--- NOTE | 2020-06-04 19:50 | NUR ---
RN OPENING NOTES RECEIVED PT IN BED. CONFUSED. PT IS ON 2L OF O2 VIA NC, TOLERATING WELL. SATURATION IS 98%. NO S/S OF RESP DISTRESS OR SOB. PT DOES HAS PRESENCE OF TREMORS, SHAKINESS. HX OF ALCOHOL ABUSE, DX DELIRIUM TREMENS. PT IS AFEBRILE, PT DENIES PAIN. PT IS NPO PEND SWALLOW EVAL ORDERED FOR TOMORROW. IV SITES FLUSHED. PT HAS D5 1/2 N2 + 10MEQ KCL NO S/S OF INFILTRATION NOTED. PT HAS SANDHU CATH DRAINING TO GRAVITY. YELLOW WITH SEDIMENT. PT ON SOFT RAYA WRIST RESTRAINTS. SKIN CHECKED. CIRCULATION CHECKED. WILL CONT TO ASSESS NEEDED. SAFETY MEASURES IN PLACE. SEIZURE PRECAUTION IN PLACE. PADDED SIDE RAILS. HOB ELEVATED. SIDE RAILS UP X3, BED LOCKED IN LOWEST POSITION WITH BED ALARM ON. CALL LIGHT WITHIN REACH.
[2020-06-05] VITALS (46 sets, daily range): BP systolic 149–217; BP diastolic 87–155
[2020-06-05] MEDS: PIPERACILLIN /TAZOBACTAM 3.375 G in IV D5W 100 ML IV SCH ×3 (00:01→16:48)
[2020-06-05] MEDS: ENALAPRILAT DIHYD. (2.5MG/2ML) 1.25 MG/ML VIAL IV PRN ×4 (02:52→18:34)
[2020-06-05 04:54] LABS: BASOPHILS % (AUTO) 0.1 % (0.0-2.0); HEMATOCRIT 39 % (39-51); LYMPHOCYTES # (AUTO) 0.3 /CMM (0.8-4.8); LYMPHOCYTES % (AUTO) 6.5 % (20.0-44.0); MEAN CORPUSCULAR HGB CONC 33 g/dl (31.0-36.0); MEAN CORPUSCULAR VOLUME 101 fL (80-96); MONOCYTES # (AUTO) 0.2 /CMM (0.1-1.30); MONOCYTES % (AUTO) 4.5 % (2.0-12.0); NEUTROPHILS # (AUTO) 4.6 /CMM (1.8-8.9); NEUTROPHILS % (AUTO) 88.9 % (43.0-81.0); PLATELET COUNT (AUTO) 125 /CMM (150-450); RED BLOOD CELL COUNT(AUTO) 3.85 MIL/uL (4.5-6.0); WHITE BLOOD COUNT (AUTO) 5.2 K/uL (4.3-11.0)
[2020-06-05 05:11] LABS: ALBUMIN 3.4 g/dL (3.4-5.0); BILIRUBIN,DIRECT 0.3 mg/dL (0.0-0.2); BILIRUBIN,TOTAL 0.9 mg/dL (0.2-1.0); CALCIUM, SERUM 8.2 mg/dL (8.5-10.1); CREATININE 1.2 mg/dL (0.6-1.3); MAGNESIUM 1.4 mg/dL (1.8-2.4); PHOSPHORUS 2.8 mg/dL (2.5-4.9); POTASSIUM 3.9 mmol/L (3.5-5.1); TOTAL PROTEIN, SERUM 7.3 g/dL (6.4-8.2)
--- NOTE | 2020-06-05 07:18 | NUR ---
RN CLOSING NOTES PT IN SAME CONDITION, NO SIGNIFICANT CHANGE. AT THIS TIME PT STILL ON 2L OF O2, NO RESP DISTRESS. PT IS CONFUSED. RESTLESS, OCCASIONALLY KICKS OUT. STILL ON SOFT RAYA WRIST RESTRAINTS. BED BATH DONE. LINENS AND GOWN CHANGED. TOWARDS END OF SHIFT, HEMATURIA PRESENT. ENDORSED TO AM NURSE. PT IVF RAN OUT, CALLED PHARMACY SAYS WILL BRING UP WHEN READY. PT DENIES PAIN. AFEBRILE. SAFETY MEASURES IN PLACE. HOB ELEVATED. SIDE RAILS UP. NO S/S OF SEIZURE ACTIVITY. BED LOCKED IN LOWEST POSITION BED ALARM ON. ENDORSED TO AM NURSE FOR CONT OF CARE.
--- NOTE | 2020-06-05 07:35 | NUR ---
RECEIVED PATIENT IN BED. PATIENT ON RESTRAINTS, IN CONFUSED STATE DUE TO WITHDRAWAL. PATIENT ON 2L O2 VIA NC, SATURATING WELL. PATIENT ON MOLD SETTER, NSR NOTED WITH HR IN 90S, BUT PER REPORT HR GOES INTO 110S. PATIENT FC IN PLACE, INTACT, DRAINING TO GRAVITY. PATIENT NPO STATUS ACKNOWLEDGED. PATIENT L AC IV ACCESS AND L HAND IV ACCESS INTACT, PATENT. PATIENT RESTRAINTS IN PLACE. PATIENT SAFETY MEASURES MAINTAINED. SITTER IN PLACE. WILL CONTINUE TO MONITOR.
[2020-06-05] MEDS: methylPREDNISolone SOD SUCC 125 MG/2ML VIAL IV SCH ×4 (08:11→20:15)
[2020-06-05] MEDS: FAMOTIDINE/PF INJ 20 MG/2 ML VIAL IV SCH ×2 (08:11→20:15)
[2020-06-05] MEDS: Potassium Chloride 10 MEQ in IV D5/0.45 NACL 1,000 ML IV SCH ×3 (08:12→23:54)
[2020-06-05] MEDS: LORAZEPAM INJ 2 MG/ML VIAL IV PRN ×5 (08:13→23:24)
[2020-06-05] MEDS: Magnesium 1GM/D5W 100ML PREMIX 100 ML IV SCH ×4 (11:28→14:53)
--- NOTE | 2020-06-05 11:58 | NUR ---
SS consult received for Alcohol withdrawal. SW called the unit to determine pt.'s level of consciousness. Per pt.'s nurse, the pt. is not intubated however, not interviewable at this time. SW will attempt to interview patient at a later time.
[2020-06-05] MEDS: NITROGLYCERIN PACKET 1 GM PACKET TOP SCH ×3 (12:21→23:23)
--- NOTE | 2020-06-05 13:36 | NUR ---
PATIENT POTASSIUM CHLORIDE ADMINISTERED LATE THIS AM DUE TO LATE DELIVERY AND PATIENT NON-COMPLIANCE. SO PATIENT CURRENT BAG OF POTASSIUM CHLORIDE STILL FULL. NON-ADMIN SCHEDULED BAG FOR 1409.
--- NOTE | 2020-06-05 18:29 | NUR ---
PATIENT IN BED. PATIENT ON RESTRAINTS, IN CONFUSED STATE DUE TO WITHDRAWAL. PATIENT ON 4L O2 VIA NC, SATURATING WELL. PATIENT ON ENVIRONMENTAL SERVICES AIDE, ST NOTED WITH HR IN 110S. PATIENT FC IN PLACE, INTACT, DRAINING TO GRAVITY. PATIENT NPO STATUS ACKNOWLEDGED. PATIENT L AC IV ACCESS AND L HAND IV ACCESS INTACT, PATENT. PATIENT RESTRAINTS IN PLACE. PATIENT SAFETY MEASURES MAINTAINED. SITTER IN PLACE. WILL ENDORSE PLAN OF CARE TO ONCOMING SHIFT
--- NOTE | 2020-06-05 19:05 | NUR ---
RECEIVED PT IN BED. CONFUSED. PT IS ON 2L OF O2 VIA NC, TOLERATING WELL. SATURATION IS 98%. NO S/S OF RESP DISTRESS OR SOB. PT DOES HAS PRESENCE OF TREMORS, SHAKINESS. HX OF ALCOHOL ABUSE, DX DELIRIUM TREMENS. PT IS AFEBRILE, NO PAIN NOTED. PT IS NPO PENDING SWALLOW EVAL . IV SITES FLUSHED. PT HAS D5 1/2 N2 + 10MEQ KCL NO S/S OF INFILTRATION NOTED. PT HAS SANDHU CATH DRAINING TO GRAVITY. TEA COLOR WITH SEDIMENT. PT ON SOFT RAYA WRIST RESTRAINTS. SKIN CHECKED. CIRCULATION CHECKED.SITTER AT BED SIDE . SAFETY MEASURES IN PLACE. SEIZURE PRECAUTION IN PLACE. PADDED SIDE RAILS. HOB ELEVATED. SIDE RAILS UP X3, BED LOCKED IN LOWEST POSITION WITH BED ALARM ON. CALL LIGHT WITHIN REACH.
--- NOTE | 2020-06-05 19:38 | NUR ---
REPORTED TO ONCALL DR. BROOKE THAT PT HAVE A HIGH BLOOD PRESSURE IS HIGH FOR A WHOLE DAY WITH LATEST BP 188/150 HR 100 AND PT IS NPO AND DID NOT PASS ST EVAL WITH ORDER MADE FOR LABETALOL 10MG Q4H PRN FOR SBP> 160 NOTED AND CARRIED OUT
[2020-06-05] MEDS: LABETALOL HCL IV 100MG VIAL IV PRN (20:15)
[2020-06-06] VITALS (57 sets, daily range): BP systolic 115–224; BP diastolic 60–149
--- NOTE | 2020-06-06 | NUR ---
REPORTED TO WORKFORCE MANAGEMENT MANAGER DR. IBANEZ THAT PT IS SO AGITATED DESPITE THE ATIVAN 4MG IV Q2H AND HE ALSO DONT HAVE AN OUTPUT SINCE THE BEGINNING OF THE SHIFT WITH ORDER TO INCREASE THE IVF TO 150ML/HR AND GIVE EXTRA ATIVAN 2MG IV X1 NOW NOTED AND CARRIED OUT
[2020-06-06] MEDS: LABETALOL HCL IV 100MG VIAL IV PRN ×4 (00:30→18:28)
[2020-06-06] MEDS: PIPERACILLIN /TAZOBACTAM 3.375 G in IV D5W 100 ML IV SCH ×3 (00:30→17:13)
[2020-06-06] MEDS ORDERED: LORAZEPAM INJ 2 MG/ML VIAL IV ONE (00:30)
[2020-06-06] MEDS: LORAZEPAM INJ 2 MG/ML VIAL IV PRN ×2 (01:39→03:34)
--- NOTE | 2020-06-06 03:31 | NUR ---
PT STILL VERY AGITATED Q2H PRN ATIVAN ALWAYS ADMINISTERED SITTER AT BED SIDE SPO2 98% STILL BP IS HIGH WILL CONT TO MONITOR
[2020-06-06] MEDS: ENALAPRILAT DIHYD. (2.5MG/2ML) 1.25 MG/ML VIAL IV PRN (03:36)
[2020-06-06 04:44] LABS: HEMATOCRIT 38 % (39-51); HEMOGLOBIN 12.7 g/dL (13.5-17.5); LYMPHOCYTES # (AUTO) 0.3 /CMM (0.8-4.8); LYMPHOCYTES % (AUTO) 5.5 % (20.0-44.0); MEAN CORPUSCULAR HGB CONC 34 g/dl (31.0-36.0); MEAN CORPUSCULAR VOLUME 100 fL (80-96); MONOCYTES # (AUTO) 0.3 /CMM (0.1-1.30); NEUTROPHILS # (AUTO) 5.2 /CMM (1.8-8.9); NEUTROPHILS % (AUTO) 88.5 % (43.0-81.0); PLATELET COUNT (AUTO) 128 /CMM (150-450); RED BLOOD CELL COUNT(AUTO) 3.79 MIL/uL (4.5-6.0); WHITE BLOOD COUNT (AUTO) 5.8 K/uL (4.3-11.0)
--- NOTE | 2020-06-06 04:49 | NUR ---
PT IS SLEEPING BUT HIS SPO2 DROPS TO 85% PUT TO O2 6L VIA MASK SPO2 NOW 91% WILL CONT TO MONITOR
[2020-06-06 04:59] LABS: CALCIUM, SERUM 8.1 mg/dL (8.5-10.1); CREATININE 1.5 mg/dL (0.6-1.3); POTASSIUM 3.9 mmol/L (3.5-5.1)
[2020-06-06] MEDS: NITROGLYCERIN PACKET 1 GM PACKET TOP SCH ×4 (05:22→23:49)
--- NOTE | 2020-06-06 06:50 | NUR ---
PT SLEEPING ON BED STILL ON O2 6L VIA MASK SPO2 100% ON SINUS RHYTHM 70'S SITTER AT BED SIDE STILL WITH BILATERAL WRIST RESTRAINTS NO SIGNIFICANT CHANGES ON CONDITION NOTED, ALL NEEDS ATTENDED, PRN FOR ANXIETY AND AGITATION WAS GIVEN BED ON LOWEST POSITION AND LOCKED SIDE RAILS UP X2 WILL ENDORSED TO AM SHIFT NURSE
[2020-06-06] MEDS: Potassium Chloride 10 MEQ in IV D5/0.45 NACL 1,000 ML IV SCH ×3 (07:01→20:12)
--- NOTE | 2020-06-06 07:30 | NUR ---
CLAIMS TECHNICIAN OPENING NOTE PT SLEEPING IN BED STILL ON O2 6L VIA MASK SPO2 100%, NO SIGNS OF RESP DISTRESS. PT SINUS RHYTHM 70'S WITH SITTER AT BED SIDE, BILATERAL WRIST RESTRAINTS IN PLACE, CMS INTACT. PT HAS LT AC #18 INFUSING D5 1/2NS 10 MEQ KCL @ 150ML/HR, NO SIGNS OF INFECTION OR INFILTRATION. WILL PUT IN ORDER FOR MIDLINE INSERTION SHORTLY. ALL SAFETY PRECAUTIONS IN PLACE. WILL CONT TO MONITOR
[2020-06-06 08:39] LABS: ABG BASE EXCESS -2.2 mmol/L; ABG PCO2 36.5 mmHg (35.0-45.0); ABG PO2 159.6 mmHg (75.0-100.0); AaDO2 155.8 mmHg; COHb 0.8 % (0.5-1.5); MetHb 0.2 % (0.0-1.5); SITE, ABG Right Radial; VENT MODE, BG SIMPLE MASK
[2020-06-06] MEDS: FAMOTIDINE/PF INJ 20 MG/2 ML VIAL IV SCH ×2 (08:57→21:17)
[2020-06-06] MEDS: methylPREDNISolone SOD SUCC 125 MG/2ML VIAL IV SCH ×2 (08:57→13:21)
--- NOTE | 2020-06-06 10:02 | NUR ---
RN NOTE PER DR COLEMAN, OK TO GIVE PT PO MEDS IN HIGH FOWLERS POSITION EVEN THOUGH SPEECH THERAPY CAME BY FOR SWALLOW EVAL AND FAILED HIM. WILL MONITOR CLOSELY
--- NOTE | 2020-06-06 12:30 | NUR ---
RN NOTE DID NOT ADMIN TOPICAL NITRO D/T BRADYCARDIA AND CONTROLLED BP
[2020-06-06] MEDS: THIAMINE HCL 100 MG TABLET PO SCH (13:19)
[2020-06-06] MEDS: CHLORDIAZEPOXIDE HCL 25 MG CAPSULE PO SCH ×2 (13:19→17:13)
--- NOTE | 2020-06-06 19:00 | NUR ---
MANAGER LOGISTIC CLOSING NOTE PT IN STABLE CONDITION. NO CHANGES TO PT STATUS. PT ON NC 4LPM, SP02 OF 99%, NO SIGN OF RESP DISTRESS OR SOB. ALL PT SAFETY PRECAUTIONS IN PLACE. WILL ENDORSE FILIBERTO TO ONCOMING RN
[2020-06-06] MEDS: methylPREDNISolone SOD SUCC 40 MG/ML VIAL IV SCH (21:17)
[2020-06-07] VITALS (37 sets, daily range): BP systolic 123–183; BP diastolic 79–124
--- NOTE | 2020-06-07 00:30 | NUR ---
ICU/NURSERY ATTENDANT PT WAS AGITATED, NOTIFED CHARGE NURSE WHO THEN GAVE ATIVAN PRN IVP. WILL CONTINUE TO MONITOR THIS PT AND HIS AGITATION.
[2020-06-07] MEDS: PIPERACILLIN /TAZOBACTAM 3.375 G in IV D5W 100 ML IV SCH ×3 (00:48→16:38)
[2020-06-07] MEDS: LORAZEPAM INJ 2 MG/ML VIAL IV PRN ×2 (00:56→14:03)
[2020-06-07] MEDS: Potassium Chloride 10 MEQ in IV D5/0.45 NACL 1,000 ML IV SCH ×4 (02:15→22:45)
[2020-06-07] MEDS: ENALAPRILAT DIHYD. (2.5MG/2ML) 1.25 MG/ML VIAL IV PRN ×2 (02:15→16:43)
--- NOTE | 2020-06-07 02:35 | NUR ---
ICU/SLUBBER FRAME CHANGER PT'S BLOOD PRESSURE HAS BEEN IN THE 190'S TO 170'S, NOTIFED THE CHARGE NURSE WHO THEN GAVE VASOTEC PRN IVP. WILL CONTINUE TO MONITOR THIS PT'S BLOOD PRESSURE.
[2020-06-07] MEDS: methylPREDNISolone SOD SUCC 40 MG/ML VIAL IV SCH ×3 (04:31→21:04)
[2020-06-07] MEDS: NITROGLYCERIN PACKET 1 GM PACKET TOP SCH ×4 (05:51→23:24)
[2020-06-07] MEDS: THIAMINE HCL 100 MG TABLET PO SCH (08:15)
[2020-06-07] MEDS: CHLORDIAZEPOXIDE HCL 25 MG CAPSULE PO SCH ×2 (08:15→16:38)
[2020-06-07] MEDS: FAMOTIDINE/PF INJ 20 MG/2 ML VIAL IV SCH ×2 (08:15→21:04)
--- NOTE | 2020-06-07 10:44 | NUR ---
Clinical Rehabilitation Aide Consult: Clinical Rehabilitation Aide consult was requested by ALYSSA Talbert for alcohol withdrawal. Pt is a 59 year old male who was admitted to [facility] on 06/04/20 to the Intensive Care Unit due to alcohol withdrawal. SW attempted to interview the pt at bedside but the pt appeared to be highly agitated and verbally aggressive. Pt stated, "Leave me the fuck alone." Pt appeared to be confused and disorganized as well. Due to the SW being unable to assess this pt, SW left substance abuse referrals on the pts desk and placed a copy in the chart. SW asked the pt to review them when he has a chance.
[2020-06-07] MEDS: LABETALOL HCL IV 100MG VIAL IV PRN (14:18)
--- NOTE | 2020-06-07 16:30 | NUR ---
RN NOTES MD ON UNIT, MADE AWARE OF HIGH BP, GIVEN ALL NEEDED MED FOR SBP >160. NO NEW ORDERS AT THIS TIME. WILL CONTINUE TO MONITOR.
[2020-06-07] MEDS: INSULIN REGULAR, HUMAN 100 UNIT/ML 3 ML VIAL SQ PRN ×2 (17:24→21:28)
[2020-06-07] MEDS: BLOOD SUGAR DIAGNOSTIC 1 EACH STRIP IN SCH ×2 (17:25→21:30)
[2020-06-07] MEDS ORDERED: DEXTROSE 50%-WATER 50 ML DISP.SYRIN IV PRN (17:30)
[2020-06-07] MEDS: LABETALOL HCL (100MG) 100 MG TABLET PO SCH ×2 (17:32→21:00)
--- NOTE | 2020-06-07 19:52 | NUR ---
horticulture instructor. initial assessment. received the pt rest on the bed. awake, alert, follow commands. oxygen 4l n/c. desk monitor showing nsr. iv rt upper arm mid line. ivf d51/2ns in 10 meq k @150ml/h. hob elevated. fc patent. urine draining. afebrile. sitter at bed side. will continue to monitor vitals.
[2020-06-08] VITALS (26 sets, daily range): BP systolic 126–194; BP diastolic 65–127
[2020-06-08] MEDS: PIPERACILLIN /TAZOBACTAM 3.375 G in IV D5W 100 ML IV SCH ×2 (00:09→09:01)
[2020-06-08] MEDS: ENALAPRILAT DIHYD. (2.5MG/2ML) 1.25 MG/ML VIAL IV PRN ×2 (00:09→06:18)
--- NOTE | 2020-06-08 01:25 | NUR ---
agriculture research director. blood pressure 170/100. vasotec iv given per ordered.
--- NOTE | 2020-06-08 04:17 | NUR ---
cvicu nurse. pt awake, alert. follow commands. am care. oral care, bed bath given. remaining same oxygen tolerated well. sat 96%. no acute distress noted, cardiac rehabilitation specialist showing s julien. hob elevated, fc patent. urine draining. afebrile. will continue to monitor vitals.
[2020-06-08] MEDS: Potassium Chloride 10 MEQ in IV D5/0.45 NACL 1,000 ML IV SCH ×3 (04:28→19:19)
[2020-06-08] MEDS: methylPREDNISolone SOD SUCC 40 MG/ML VIAL IV SCH ×2 (04:28→20:33)
[2020-06-08 04:40] LABS: HEMATOCRIT 35 % (39-51); HEMOGLOBIN 11.7 g/dL (13.5-17.5); LYMPHOCYTES # (AUTO) 0.3 /CMM (0.8-4.8); LYMPHOCYTES % (AUTO) 7.7 % (20.0-44.0); MEAN CORPUSCULAR HGB CONC 33 g/dl (31.0-36.0); MEAN CORPUSCULAR VOLUME 102 fL (80-96); MONOCYTES # (AUTO) 0.3 /CMM (0.1-1.30); MONOCYTES % (AUTO) 7.3 % (2.0-12.0); NEUTROPHILS # (AUTO) 3.5 /CMM (1.8-8.9); PLATELET COUNT (AUTO) 116 /CMM (150-450); RED BLOOD CELL COUNT(AUTO) 3.45 MIL/uL (4.5-6.0); WHITE BLOOD COUNT (AUTO) 4.1 K/uL (4.3-11.0)
[2020-06-08 05:06] LABS: CALCIUM, SERUM 7.5 mg/dL (8.5-10.1); CREATININE 0.9 mg/dL (0.6-1.3); POTASSIUM 4.1 mmol/L (3.5-5.1)
[2020-06-08] MEDS: NITROGLYCERIN PACKET 1 GM PACKET TOP SCH ×4 (06:18→23:37)
[2020-06-08] MEDS: BLOOD SUGAR DIAGNOSTIC 1 EACH STRIP IN SCH ×4 (07:30→21:41)
[2020-06-08] MEDS: CHLORDIAZEPOXIDE HCL 25 MG CAPSULE PO SCH ×2 (09:00→17:37)
[2020-06-08] MEDS: THIAMINE HCL 100 MG TABLET PO SCH (09:00)
[2020-06-08] MEDS: FAMOTIDINE/PF INJ 20 MG/2 ML VIAL IV SCH ×2 (09:00→20:32)
[2020-06-08] MEDS ORDERED: hydrALAZINE HCL 50 MG TABLET PO SCH (09:30)
[2020-06-08] MEDS: LORAZEPAM INJ 2 MG/ML VIAL IV PRN (09:37)
--- NOTE | 2020-06-08 10:00 | NUR ---
RN NOTES SEEN AND EXAMINED BY DR. ROCHE, ORDER TO DC LABETOLOL PO, ORDER HYDRALAZINE 100MG PO TID, ORDERS MADE AND CARRIED OUT. WILL CONTINUE TO MONITOR.
[2020-06-08] MEDS: INSULIN REGULAR, HUMAN 100 UNIT/ML 3 ML VIAL SQ PRN ×2 (11:42→21:41)
[2020-06-08] MEDS: hydrALAZINE HCL 50 MG TABLET PO SCH ×2 (12:03→20:34)
--- NOTE | 2020-06-08 13:15 | NUR ---
RN NOTES PATIENT TRANSFERRED TO ROOM 308 WITH 2 RN, NO SIGNS OF DISTRESS NOTED, BEDSIDE REPORT GIVEN TO LUIS EDUARDO BARBOSA. ALL BELONGINGS AND MEDICATION TRANSFERRED WITH PATIENT.
--- NOTE | 2020-06-08 13:45 | NUR ---
ACCOUNTING SYSTEMS ANALYST NOTES RECEIVED PATIENT FROM ICU , REPORT GIVEN BY MUKUND RN, ALERT ORIENTED X 3. NO ACUTE DISTRESS NOTED. BREATHING UNLABORED. IV ACCESS PATENT AND INTACT, NO REDNESS, NO SWELLING NOTED. SAFETY MEASURES IN PLACE. CALL LIGHT WITHIN REACH. WILL CONTINUE TO MONITOR ACCORDINGLY.
--- NOTE | 2020-06-08 19:00 | NUR ---
SPOT BILLING CLERK NOTES PATIENT IN BED ALERT ORIENTED X 3. SITTER AT BEDSIDE. NO ACUTE DISTRESS NOTED. BREATHING UNLABORED. IV ACCESS PATENT AND INTACT, NO REDNESS, NO SWELLING NOTED. NEEDS ATTENDED AND ANTICIPATED .SAFETY MEASURES IN PLACE. CALL LIGHT WITHIN REACH. WILL ENDORSE TO NIGHT NURSE FOR CONTINUITY OF CARE.
--- NOTE | 2020-06-08 19:15 | NUR ---
RN NOTES: RECEIVED AWAKE,LYING COMFORTABLY IN BED, A/OX2-3 CZECH SPEAKING BUT ABLE TO VERBALIZED NEEDS IN AMERICAN, ORIENTED TO UNIT AND STAFF,KEPT CALL LIGHT WITHIN EASY REACH. PATIENT IS CONTINENT/INCONTINENT IN B/B. SKIN IS INTACT UNABLE TO AMBULATE WITHOUT ASSISTANCE. FALL,SAFETY AND ASPIRATION PRECAUTION OBSERVED, ON ROOM AIR NON LABORED BREATHING. -PER RN ENDORSEMENT PATIENT TOOK OUT HER CANNULA AND NOT YET REINSERTED.SHE WAS STARTED ON STOOL SOFTENER AND HAD BM THIS MORNING-SMALL AMOUNT. Addendum: 06/08/20 at 4 by JERZY SANCHEZ RN ADDENDUM: DISREGARD NOTES:WRONG ENTRY OF CHARTING
--- NOTE | 2020-06-08 19:20 | NUR ---
RN NOTES: RECEIVED AWAKE ON BED, ON SEMI FOWLERS POSITION, A/0X1-2, ABLE TO VERBALIZED NEEDS, ORIENTED TO UNIT AND STAFF, ON TELE MONITOR SR-61, ON SANDHU CATH RAINING INTO YELLOWISH COLORED URINE, ROLAND-MIDLINE WITH IVF OF D5 1/2 NS AT 150 ML/HR CONSUMED AND REPLACED WITH NEW BOTTLE,NO SIGN OR RESPIRATORY DISCOMFORT ON O2 AT 2-3 L MIN VIA NC, FALL,SAFETY AND ASPIRATION PRECAUTION OBSERVED,KEPT CALL LIGHT WITHIN EASY REACH, SIDE RAILS UPX2, HE HAS 1;1 SITTER AT BED SIDE.
[2020-06-08] MEDS: AMOXICILLIN TRIHYDRATE 250 MG CAPSULE PO SCH (20:33)
--- NOTE | 2020-06-08 21:42 | NUR ---
RN NOTES: BLOOD SUGAR CHECKED-112, NO INSULIN GIVEN PER SCALE, WILL CONTINUE TO MONITOR FOR SIGN OF HYPER/HYPOGLYCEMIA.
[2020-06-09] VITALS: BP 155/100
--- NOTE | 2020-06-09 01:35 | NUR ---
RN NOTES: 0030 BP-155/100 MI-59 SINUS RHYTHM, NO COMPLAINTS OF CHEST PAIN OR DISCOMFORT, NITROGLYCERINE GIVEN SCHEDULED.ASLEEP, NO TREMOR OR ANY SIGN OF ALCOHOL WITHDRAWAL NOTED, SEIZURE AND ASPIRATION PRECAUTION OBSERVED.
--- NOTE | 2020-06-09 01:37 | NUR ---
RN NOTES: ASLEEP NO PAIN OR DISCOMFORT, NO SIGN OF RESPIRATORY DISTRESS. KEPT MONITORED.
[2020-06-09] MEDS: Potassium Chloride 10 MEQ in IV D5/0.45 NACL 1,000 ML IV SCH ×4 (02:11→21:05)
--- NOTE | 2020-06-09 03:50 | NUR ---
RN NOTES: NO SIGN OF AGITATION, COOPERATIVE AND PLEASANT MOOD, NO SIGN OF AGRRESIVENESS OR COMBATIVE BEHAVIOR NOTED ON ENTIRE SHIFT.MONITORED FOR SEIZURE.
[2020-06-09 04:00] VITALS: BP 153/113
[2020-06-09] MEDS: hydrALAZINE HCL 50 MG TABLET PO SCH ×3 (04:56→20:45)
[2020-06-09] MEDS: NITROGLYCERIN PACKET 1 GM PACKET TOP SCH ×3 (05:04→18:15)
[2020-06-09] MEDS: ACETAMINOPHEN 325 MG TABLET PO PRN ×2 (05:14→19:39)
--- NOTE | 2020-06-09 05:15 | NUR ---
RN NOTES: RN NOTES: -AT 0430 HE WAS AWAKEN TO CHECK V/S, HE WAS A BIT UPSET AND SHOUT TO THE SITTER, EXPLAINED TO HIM THAT HE IS STILL A TELE PATIENT AND WE NEED TO MONITOR HIS V/S, HIS BP-153/115 INITIALLY, THEN ASK TO CALM DOWN, REPEATED AFTER FEW MIN. BP-153/110, TRIED TO PACIFY HIM, HYDRALAZINE 100MG, FOLLOWED BY NITRO-BID GIVEN. -AT 0514 HE CALM DOWN HE TALK IN CALM VOICE, RN EXPLAINED TO HIM THAT WE NEED TO MONITOR HIM JUST LIKE IN ICU, HE SAID HE UNDERSTAND, HE ASKED FOR TYLENOL, PRN GIVEN, HE HAD A SLIGHT HEADACHE BECAUSE HE SUDDENLY WAKE UP.KEPT IN COMFORTABLE POSITION.
[2020-06-09 07:39] LABS: EOSINOPHILS % (AUTO) 0.1 % (0.0-6.0); HEMATOCRIT 37 % (39-51); HEMOGLOBIN 12.3 g/dL (13.5-17.5); LYMPHOCYTES # (AUTO) 0.6 /CMM (0.8-4.8); LYMPHOCYTES % (AUTO) 12.3 % (20.0-44.0); MEAN CORPUSCULAR HGB CONC 33 g/dl (31.0-36.0); MEAN CORPUSCULAR VOLUME 101 fL (80-96); MONOCYTES # (AUTO) 0.4 /CMM (0.1-1.30); MONOCYTES % (AUTO) 9.7 % (2.0-12.0); NEUTROPHILS # (AUTO) 3.5 /CMM (1.8-8.9); NEUTROPHILS % (AUTO) 77.9 % (43.0-81.0); PLATELET COUNT (AUTO) 128 /CMM (150-450); RED BLOOD CELL COUNT(AUTO) 3.67 MIL/uL (4.5-6.0); WHITE BLOOD COUNT (AUTO) 4.5 K/uL (4.3-11.0)
[2020-06-09 07:52] LABS: CREATININE 0.9 mg/dL (0.6-1.3); POTASSIUM 4.2 mmol/L (3.5-5.1)
--- NOTE | 2020-06-09 08:00 | NUR ---
RN Opening note Received patient in bed, AO x 1-2, able to responds all stimuli, Pt does no c/o pain or distress. Skin is warm to touch keep clean/dry intact IV site, respiratory even and unlabored on O2sat 100%. Kept locked bed with elevated HOB for aspiration precaution and ensure airway and lowest bed foe safety. Call light within reach, will continue to monitor.
--- NOTE | 2020-06-09 08:06 | NUR ---
RN NOTES: ON SR RATE-69, URINE OUTPUT-1,250,CONTINUE IVF, BLOOD SUGAR CHECKED-104, FOR LAB TEST THIS MORNING, NOTIFIED INCOMING NURSE TO REFER BP DURING DOCTORS ROUND, PER SITTER HE HAS ON AND OFF COUGH THIS MORNING, ENDORSED FOR CONTINUITY OF CARE.
[2020-06-09] MEDS: BLOOD SUGAR DIAGNOSTIC 1 EACH STRIP IN SCH ×4 (08:10→21:31)
[2020-06-09] MEDS: CHLORDIAZEPOXIDE HCL 25 MG CAPSULE PO SCH ×2 (08:40→18:13)
[2020-06-09] MEDS: FAMOTIDINE/PF INJ 20 MG/2 ML VIAL IV SCH (08:40)
[2020-06-09] MEDS: AMOXICILLIN TRIHYDRATE 250 MG CAPSULE PO SCH ×2 (08:40→20:45)
[2020-06-09] MEDS: methylPREDNISolone SOD SUCC 40 MG/ML VIAL IV SCH (08:40)
[2020-06-09] MEDS: THIAMINE HCL 100 MG TABLET PO SCH (08:40)
--- NOTE | 2020-06-09 18:30 | NUR ---
RN closing Patient is in bed resting, does no appears distress or discomfort. Skin is warm to touch, keep clean/dry. Respiratory even and unlabored with oxygen at 4LPM. Kept elevated HOB for ensure air way and aspiration precaution and lowest bed for safety. Sitter by the bed, call light within reach, will endorse abstract clerk
--- NOTE | 2020-06-09 19:54 | NUR ---
RN NOTES PT RECEIVED ALERT AND ORIENTED X 4 NO RESPIRATORY DISTRESS NOTED ON 4LPM VIA NASAL CANULA TOLERATING WELL. PT REPORTED GENERALIZED PAIN TYLENOL PROVIDED FOR PAIN MANAGEMENT.WILL REASSESS. ALL PT NEEDS ATTENDED TO AT THIS TIME. CALL LIGHT WITHIN REACH SAFETY MEASURES FOLLOWED.WILL CONTINUE TO MONITOR.
[2020-06-09 20:00] VITALS: BP 178/95
[2020-06-09] MEDS: FAMOTIDINE (20 MG) 20 MG TABLET PO SCH (20:45)
--- NOTE | 2020-06-09 21:31 | NUR ---
RN NOTES BLOOD SUGAR 118 NO INSULIN COVERAGE NEEDED. WILL CONTINUE TO MONITOR.
[2020-06-10] MEDS: NITROGLYCERIN PACKET 1 GM PACKET TOP SCH ×4 (00:24→17:05)
--- NOTE | 2020-06-10 00:27 | NUR ---
RN NOTES PT EXPRESSED HAVING INDIGESTION NURSE PROVIDED MEDICATION FOR INDIGESTION.WILL CONTINUE TO MONITOR.
[2020-06-10] MEDS: Potassium Chloride 10 MEQ in IV D5/0.45 NACL 1,000 ML IV SCH ×3 (03:26→17:59)
[2020-06-10] MEDS: hydrALAZINE HCL 50 MG TABLET PO SCH ×3 (05:14→21:05)
--- NOTE | 2020-06-10 06:40 | NUR ---
RN NOTES BLOOD SUGAR CHECKED NO INSULIN COVERAGE NEEDED. WILL CONTINUE TO MONITOR.
[2020-06-10] MEDS: BLOOD SUGAR DIAGNOSTIC 1 EACH STRIP IN SCH ×4 (06:48→21:52)
--- NOTE | 2020-06-10 07:12 | NUR ---
RN NOTES PT ALERT AND ORIENTED X 4 NO RESPIRATORY DISTRESS PT ON ROOM AIR TOLERATING WELL..WILL REASSESS. ALL PT NEEDS ATTENDED TO AT THIS TIME. CALL LIGHT WITHIN REACH SAFETY MEASURES FOLLOWED.WILL ENDORSE CARE TO DAY SHIFT NURSE.
--- NOTE | 2020-06-10 07:37 | NUR ---
MS RN OPENING NOTES PT RECEIVED AWAKE, A/O X 2-3 WITH SLIGHT CONFUSION. PT IS VERBAL AND ABLE TO VERBALIZE NEEDS. PT ON ROOM AIR WITH NO SOB OR LABORED BREATHING NOTED. PT HAS IVF OF POTASSIUM CHLORIDE WITH D5 1/2 NS HELD BY FLORIST'S DECORATOR NURSE AT THIS TIME BECAUSE OF ELEVATED BP. PT HAS IV ACCESS ON LEFT UPPER ARM WITH NO REDNESS, SWELLING OR INFILTRATION NOTED AT SITE. PT COMPLAINED OF CHEST PAIN, BUT TOLERABLE AT THIS TIME. SAFETY MEASURES IN PLACE: BED PLACED IN LOWEST, LOCKED POSITION. CALL LIGHT PLACED WITHIN REACH. WILL CONTINUE TO MONITOR.
[2020-06-10 08:00] VITALS: BP 157/101
[2020-06-10] MEDS: THIAMINE HCL 100 MG TABLET PO SCH (08:40)
[2020-06-10] MEDS: FAMOTIDINE (20 MG) 20 MG TABLET PO SCH ×2 (08:40→21:05)
[2020-06-10] MEDS: AMOXICILLIN TRIHYDRATE 250 MG CAPSULE PO SCH ×2 (08:40→21:04)
[2020-06-10] MEDS: CHLORDIAZEPOXIDE HCL 25 MG CAPSULE PO SCH ×2 (08:41→16:28)
[2020-06-10] MEDS ORDERED: methylPREDNISolone SOD SUCC 40 MG/ML VIAL IV SCH (09:00)
--- NOTE | 2020-06-10 10:00 | NUR ---
RN NOTES PT HAD PHYSICAL EVALUATION TODAY, ABLE TO WALKED TO THE TOILET WITH FWW AND ASSIST. REMINDED PT TO CALL FOR ASSISTANCE WHEN OOB. WILL CONTINUE TO MONITOR.
[2020-06-10] MEDS: INSULIN REGULAR, HUMAN 100 UNIT/ML 3 ML VIAL SQ PRN ×2 (11:29→17:44)
[2020-06-10 16:00] VITALS: BP 128/91
--- NOTE | 2020-06-10 18:33 | NUR ---
MS RN CLOSING NOTE PT IS AWAKE IN BED, RESPONSIVE, ABLE TO MAKE NEEDS KNOWN AND IS A/O X 3-4. PT HAS NO C/O PAIN AT THIS TIME. HOB IS ELEVATED. PT IS ON ROOM AIR AND TOLERATING WELL WITH NO SOB, LABORED BREATHING AND RESPIRATORY DISTRESS NOTED. PT HAS IV ACCESS ON LEFT UPPER ARM PATENT, INTACT AND FLUSHING WELL WITH NO REDNESS, SWELLING, INFILTRATION OR IRRITATION NOTED. SAFETY MEASURES IN PLACE: BED IN LOWEST POSITION AND LOCKED WITH UPPER SIDE RAILS UP X 2. CALL LIGHT PLACED WITHIN REACH. WILL ENDORSE TO TEXTILE FINISHER NURSE.
--- NOTE | 2020-06-10 20:18 | NUR ---
RN NOTES PT IS AWAKE IN BED, RESPONSIVE, ABLE TO MAKE NEEDS KNOWN AND IS A/O X 3-4. PT HAS NO C/O PAIN AT THIS TIME. HOB IS ELEVATED. PT IS ON ROOM AIR AND TOLERATING WELL WITH NO SOB, LABORED BREATHING AND RESPIRATORY DISTRESS NOTED. PT HAS IV ACCESS ON LEFT UPPER ARM PATENT, INTACT AND FLUSHING WELL WITH NO REDNESS, SWELLING, INFILTRATION OR IRRITATION NOTED. SAFETY MEASURES IN PLACE: BED IN LOWEST POSITION AND LOCKED WITH UPPER SIDE RAILS UP X 2. CALL LIGHT PLACED WITHIN REACH.WILL CONTINUE TO MONITOR.
[2020-06-10 21:34] VITALS: BP 115/117
--- NOTE | 2020-06-10 21:56 | NUR ---
RN NOTES BLOOD SUGAR CHECKED NO INULIN COVERAGE NEEDED. WILL CONTINUE TO MONITOR.
[2020-06-11] MEDS: NITROGLYCERIN PACKET 1 GM PACKET TOP SCH ×3 (00:14→12:48)
[2020-06-11] MEDS: Potassium Chloride 10 MEQ in IV D5/0.45 NACL 1,000 ML IV SCH ×3 (00:16→14:03)
[2020-06-11] MEDS: hydrALAZINE HCL 50 MG TABLET PO SCH ×2 (04:56→12:47)
[2020-06-11] MEDS: BLOOD SUGAR DIAGNOSTIC 1 EACH STRIP IN SCH ×3 (06:56→17:24)
[2020-06-11] MEDS ORDERED: THIA100T88 PO (07:11)
[2020-06-11] MEDS ORDERED: METH4TAB3 PO (07:11)
[2020-06-11] MEDS ORDERED: AMOX500C2 PO (07:14)
--- NOTE | 2020-06-11 07:18 | NUR ---
MS RN OPENING NOTES PT RECEIVED AWAKE, RESPONSIVE, A/O X 3-4. PT IS WATCHING TV, IS VERBAL AND ABLE TO VERBALIZE NEEDS. PT HAS NO C/O PAIN AT THIS TIME. PT ON ROOM AIR WITH NO SOB OR LABORED BREATHING NOTED. PT HAS IV ACCESS ON LEFT UPPER ARM, PATENT, INTACT AND FLUSHES WELL WITH NO REDNESS, SWELLING. IRRITATION OR INFILTRATION NOTED AT SITE. PT VERBALIZES EAGERNESS TO RECOVER AND GO HOME. SAFETY MEASURES IN PLACE: BED PLACED IN LOWEST, LOCKED POSITION. BOTH UPPER SIDE RAILS X 2 ARE UP. CALL LIGHT PLACED WITHIN REACH. WILL CONTINUE TO MONITOR.
--- NOTE | 2020-06-11 07:20 | NUR ---
RN NOTES BLOOD SUGAR CHECKED NO INSULIN COVERAGE NEEDED. WILL ENDORSE CARE TO DAY SHIFT NURSE.
[2020-06-11 08:00] VITALS: BP 143/93
[2020-06-11] MEDS: FAMOTIDINE (20 MG) 20 MG TABLET PO SCH (08:41)
[2020-06-11] MEDS: AMOXICILLIN TRIHYDRATE 250 MG CAPSULE PO SCH (08:41)
[2020-06-11] MEDS: CHLORDIAZEPOXIDE HCL 25 MG CAPSULE PO SCH ×2 (08:41→17:00)
[2020-06-11] MEDS: THIAMINE HCL 100 MG TABLET PO SCH (08:42)
[2020-06-11] MEDS ORDERED: DEXAMETHASONE 4 MG TABLET PO SCH (09:00)
[2020-06-11] MEDS: INSULIN REGULAR, HUMAN 100 UNIT/ML 3 ML VIAL SQ PRN (11:38)
[2020-06-11 11:48] LABS: CALCIUM, SERUM 8.4 mg/dL (8.5-10.1); CREATININE 0.9 mg/dL (0.6-1.3); POTASSIUM 3.6 mmol/L (3.5-5.1)
--- NOTE | 2020-06-11 12:10 | NUR ---
Treasury Manager Consult: SW consult requested by ICU staff for a 59year old homeless male. SW met with pt at ICU room 308/1 and conducted an assessment at 1110 am. Pt made good eye contact during the assessment. Pt. alert and oriented x4 ( time, place, self, and situation). Pt appears to be in an anxious mood with distressed affect. Pt.'s speech is normal limits without limitations . Patient states he is seeking medical attention for ETOH abuse. Pt. denies suicidal and homicidal ideation. Pt denies any visual or auditory hallucinations as well. Pt. states he has hx of seizures. Pt states drinking for about 40 years. Pt states his preference of alcohol is liquor (vodka) and drinks 4 pints a day. Pt. appear groomed and has appropriate clothing (medical gown). Pt. appears to be ambulatory with a steady gait. Pt phone number ([phone]) Pt is currently unemployed and receives GR monthly ($221), and food stamps ($189 monthly). Pt agrees to having an addiction issue with ETOH and is the reason for being admitted to the hospital. Pt has a plan once being medically discharged to return back to [facility] ([address] [place] [address], ). Pt also gave additional number ([phone]-Mary -insurance verification representative(Ext [phone]). Pt states has been staying there before admitting to the hospital and will return back to the facility. Pt ambulates with steady gait and no DME. SW offer resources with 9546-4370winter mcc packet and addiction resources. Pt is responsive to the resources given. Mental Health resources provided: [facility] [address] [place] [address] ; [facility] [place] [address] [facility] [address], [place] [address] ; [address] [facility] [address] [place] [address] ; [facility] [place], [place] [phone] . Substance Abuse resources provided included: [facility] Substance Abuse Self-Help line ([facility]) ; [facility] [address] [facility] [place] [address] ; [facility] [place] [address] [facility] [address] ; [facility] [address] [place] [address] ; [facility] [address] [facility] [address] ; [facility] [address] [facility] [address] ; [facility] [address] [facility] [phone] ; [facility] Substance Abuse Help line ([facility] ; On License Of [facility] ; [facility] [place]; [facility] [place]; [facility] [place]; [facility] [place]; [facility] [place]; [facility] [place]; [facility], [facility]. [place]; Alcoholics Anonymous [facility]; [facility] ; Marijuana Anonymous [facility]; Narcotics Anonymous www.na.org. Pt is receptive towards resources and list given by the during the assessment. Pt sign homeless waiver form and placed in pt's chart. Plan: Pt. was given the appropriate resources with the substance abuse packet and the homeless 5022-8253winter mcc packet. Pt will return to [facility] ([address], [place] [address], ). Pt also gave additional number ([phone]-Mary -insurance verification representative(Ext [phone]).
--- NOTE | 2020-06-11 12:46 | NUR ---
RN NOTES SANDHU CATHETER REMOVED, NO HEMATURIA NOTED AND NO C/O PAIN VOICED BY PT. WILL MONITOR PT FOR VOIDING.
[2020-06-11 16:30] VITALS: BP 125/64
[2020-06-11] MEDS: CLONIDINE HCL 0.3 MG/24H PTWK 1 EA PATCH TD SCH (16:30)
--- NOTE | 2020-06-11 16:45 | NUR ---
RN NOTES PT HAD SHOWER AND VERBALIZED THAT HE'S VOIDING WELL W/O PROBLEM.
--- NOTE | 2020-06-11 17:40 | NUR ---
RN DISCHARGED NOTES PATIENT DISCHARGED HOME IN STABLE CONDITION. HE'S A/O X4. ABLE TO MAKE NEEDS KNOWN. ALL NEEDS AND CARE ATTENDED WELL. V/S TAKEN, STABLE AND RECORDED. HOMELESS WAIVER FORM SIGNED BY PT. ALL BELONGINGS ACCOUNTED FOR AND SIGNED FORM. NO SKIN ISSUES NOTED. MIDLINE ON ROLAND REMOVED WITH NO ACTIVE BLEEDING NOTED, DRY PRESSURE DRESSING APPLIED TO SITE. NAME ARMBAND REMOVED. HOMELESS RESOURCES GIVEN BY SW TO PT BUT PT VERBALIZED THAT HE WILL GO BACK TO [facility] [address] [place] [address], . ALCOHOL CESSATION EDUCATION AND DISCHARGE INSTRUCTIONS GIVEN TO PT AND VERBALIZED UNDERSTANDING. PT LEFT UNIT AT 1725 AMBULATORY WITH STEADY GAIT ACCOMPANIED BY ME TO LOBBY. TAP CARD GIVEN TO PT. CHARGE NURSE NICK AWARE OF DISCHARGE.
== END 2020-06-11 17:30 | disposition home or self-care (01) | DRG 775 ==
LOC: ER 16:59 → UNDOADMIN 18:57 → TRANSITION 18:57 → ICU 06-04 07:49 → MED 06-08 13:17 → TELE 06-08 18:12 → MED 06-09 10:22
PROVIDERS: ADMIT Internal Medicine; ATTEND Nurse Practitioner Acute Care
PROC: 05HA33Z Insertion of Infusion Device into Left Brachial Vein, Percutaneous Approach (ICD-10-PCS; principal; 2020-06-06)
DX: F10.231 Alcohol dependence with withdrawal delirium (principal); F29 Unspecified psychosis not due to a substance or known physiological condition; J45.909 Unspecified asthma, uncomplicated; I10 Essential (primary) hypertension; Y90.5 Blood alcohol level of 100-119 mg/100 ml; I16.0 Hypertensive urgency; G92 Toxic encephalopathy; N17.0 Acute kidney failure with tubular necrosis; E87.5 Hyperkalemia; E83.42 Hypomagnesemia; E66.9 Obesity, unspecified; J44.9 Chronic obstructive pulmonary disease, unspecified; Z59.0 Homelessness; F17.200 Nicotine dependence, unspecified, uncomplicated; F41.9 Anxiety disorder, unspecified; E87.6 Hypokalemia; Z79.51 Long term (current) use of inhaled steroids; Z79.899 Other long term (current) drug therapy; R74.01 Elevation of levels of liver transaminase levels; N13.9 Obstructive and reflux uropathy, unspecified; J39.2 Other diseases of pharynx; J39.1 Other abscess of pharynx; M48.02 Spinal stenosis, cervical region; R09.02 Hypoxemia; Z79.01 Long term (current) use of anticoagulants; Z68.28 Body mass index [BMI] 28.0-28.9, adult
CPT/HCPCS: 36415; 36600; 70490-TC; 71045-TC; 80048-TC; 80076-TC; 82803-TC; 82962-TC; 83605-TC; 83735-TC; 84100-TC; 84484-TC; 85025-TC; 85730-TC; 87040-TC; 87081-TC; 92526; 92611-TC; 97112-TC; 97116-TC; 97530-TC; C9803; G0378; G0480; J0696; J1200; J1630; J1815; J2060; J2270; J2543; J2920; J2930; J3475; J3480; J3490; J7030; J7050; J7060; J8540

== ENCOUNTER 2020-07-05 10:58 | Emergency (ER) | payer OTHER ==
[~2020-07-05] VITALS: Ht 182.9 cm; Wt 98.9 kg
[~2020-07-05 10:58] MED LIST changes: +ALBU18HF2 IH; +AMOX500C2 PO; +APIX2.5T PO; +BECL10.62 IH; -CHLO25CA10 PO; +CYAN-51 PO; -FOLI1TAB16 PO; +HYDR12.55 PO; +METH4TAB3 PO; +MONT10TA22 PO; +THIA100T88 PO
--- NOTE | 2020-07-05 11:28 | NUR ---
59 y/m with self reported history of HTN, vertigo, seizure and chronic alcohol use, presents to the Ed with a c/o of dizziness and intermittent chest pain 8/10 x 1 day. Pt reports drinking 6 packs of beer yesterday. pt reports his chest pain has been happening for a very long time, and it does not radiates to anywhere. Pt noted with mild upper extremities tremors and unsteady gait. Pt denies fall/injury, N/V/SOB and headache. Pt place in bed, cardiac and cont pulse oximetry in place, 18 G IV inserted, all labs collected and sent. Safety precaution and seizure precaution in place and will continue to monitor and interven as per MD recommendation.
[2020-07-05] MEDS ORDERED: ONDANSETRON HCL/PF 4 MG/2 ML VIAL IVP ONE (11:30)
[2020-07-05] MEDS ORDERED: PANTOPRAZOLE 40 MG VIAL IV ONE (11:30)
[2020-07-05] MEDS ORDERED: LORAZEPAM INJ 2 MG/ML VIAL IV ONE (11:30)
[2020-07-05 11:33] LABS: BASOPHILS # (AUTO) 0.1 /CMM (0.0-0.2); BASOPHILS % (AUTO) 1.3 % (0.0-2.0); EOSINOPHILS % (AUTO) 0.2 % (0.0-6.0); HEMATOCRIT 44 % (39-51); HEMOGLOBIN 14.9 g/dL (13.5-17.5); LYMPHOCYTES # (AUTO) 1.8 /CMM (0.8-4.8); LYMPHOCYTES % (AUTO) 29.6 % (20.0-44.0); MEAN CORPUSCULAR HGB CONC 34 g/dl (31.0-36.0); MEAN CORPUSCULAR VOLUME 99 fL (80-96); MONOCYTES # (AUTO) 0.4 /CMM (0.1-1.30); MONOCYTES % (AUTO) 7.2 % (2.0-12.0); NEUTROPHILS # (AUTO) 3.8 /CMM (1.8-8.9); NEUTROPHILS % (AUTO) 61.7 % (43.0-81.0); PLATELET COUNT (AUTO) 265 /CMM (150-450); RED BLOOD CELL COUNT(AUTO) 4.48 MIL/uL (4.5-6.0); WHITE BLOOD COUNT (AUTO) 6.2 K/uL (4.3-11.0)
[2020-07-05 11:39] LABS: CARBON DIOXIDE 31 mmol/L (21-32); CHLORIDE 101 mmol/L (98-107); CREATININE 1.2 mg/dL (0.6-1.3); GLUCOSE 106 mg/dL (74-106); SODIUM SERUM 141 mmol/L (136-145); UREA NITROGEN, BLOOD 11 mg/dL (7-18)
[2020-07-05] MEDS ORDERED: ONDANSETRON HCL/PF 4 MG/2 ML VIAL ONE (11:39)
[2020-07-05] MEDS ORDERED: PANTOPRAZOLE 40 MG VIAL ONE (11:39)
[2020-07-05] MEDS ORDERED: LORAZEPAM INJ 2 MG/ML VIAL ONE (11:40)
[2020-07-05 11:41] LABS: ALCOHOL, BLOOD < 3 mg/dL (0-0)
[2020-07-05] MEDS ORDERED: CHLO25CA22 PO (12:20)
[2020-07-05 19:18] VITALS: BP 144/90
--- NOTE | 2020-07-05 19:18 | NUR ---
Patient discharged to home in stable condition. Written and verbal after care instructions given. Patient verbalizes understanding of instruction.
== END 2020-07-05 19:20 | disposition home or self-care (01) ==
LOC: ER 11:02
DX: F10.239 Alcohol dependence with withdrawal, unspecified (principal); R07.89 Other chest pain; I10 Essential (primary) hypertension; F32.9 Major depressive disorder, single episode, unspecified; Z98.890 Other specified postprocedural states; Z79.899 Other long term (current) drug therapy; Y90.0 Blood alcohol level of less than 20 mg/100 ml
CPT/HCPCS: 36415; 71045; 80048; 80320; 84484 ×2; 85025; 85730; 93005 ×2; 96374; 96375; 99285; C9113; J2060; J2405; G0480

== ENCOUNTER 2020-09-19 05:35 | Emergency (ER) | payer OTHER ==
[~2020-09-19] VITALS: Ht 182.9 cm; Wt 99.8 kg
[~2020-09-19 05:35] MED LIST changes: +CHLO25CA22 PO
--- NOTE | 2020-09-19 05:45 | NUR ---
LIN FROM [facility], NON RADIATING CP 12/04 SINCE 1999 . PER PT HE HE'S ALWAYS SHORT OF BREATH. PT ALSO W/ C/O L AHND NUMBNESS. REC'D NITRO SPRAY X1 W/ NO RELIEF. PER PT AND EMS PT W/ HX OF "STOMACH ULCER" HENCE ASA WAS NOT GIVEN ON THE FIELD. PT WAS PLACED IN BED 9 ER , ON MONITOR . VSS. WILL CONT TO MONITOR
[2020-09-19 06:05] LABS: BASOPHILS % (AUTO) 1.1 % (0.0-2.0); EOSINOPHILS % (AUTO) 3.4 % (0.0-6.0); HEMATOCRIT 40 % (39-51); HEMOGLOBIN 13.3 g/dL (13.5-17.5); LYMPHOCYTES # (AUTO) 1.5 /CMM (0.8-4.8); LYMPHOCYTES % (AUTO) 32.5 % (20.0-44.0); MEAN CORPUSCULAR HGB CONC 33 g/dl (31.0-36.0); MEAN CORPUSCULAR VOLUME 97 fL (80-96); MONOCYTES # (AUTO) 0.4 /CMM (0.1-1.30); MONOCYTES % (AUTO) 9.3 % (2.0-12.0); NEUTROPHILS # (AUTO) 2.5 /CMM (1.8-8.9); NEUTROPHILS % (AUTO) 53.7 % (43.0-81.0); PLATELET COUNT (AUTO) 215 /CMM (150-450); RED BLOOD CELL COUNT(AUTO) 4.08 MIL/uL (4.5-6.0); WHITE BLOOD COUNT (AUTO) 4.6 K/uL (4.3-11.0)
[2020-09-19 06:15] LABS: CALCIUM, SERUM 9.1 mg/dL (8.5-10.1); CARBON DIOXIDE 29 mmol/L (21-32); CHLORIDE 103 mmol/L (98-107); CREATININE 1.1 mg/dL (0.6-1.3); GLUCOSE 90 mg/dL (74-106); POTASSIUM 4.7 mmol/L (3.5-5.1); SODIUM SERUM 139 mmol/L (136-145); UREA NITROGEN, BLOOD 18 mg/dL (7-18)
--- NOTE | 2020-09-19 06:53 | NUR ---
PT is medically stable for d/c. IV removed. Catheter intact and site benign. Pressure and 4x4 applied to site. No bleeding noted.Patient discharged to home in stable condition. Written and verbal after care instructions given. Patient verbalizes understanding of instruction.
[2020-09-19 06:54] VITALS: BP 126/87
== END 2020-09-19 06:54 | disposition home or self-care (01) ==
LOC: ER 05:35
DX: R07.89 Other chest pain (principal); I10 Essential (primary) hypertension; F32.9 Major depressive disorder, single episode, unspecified; F10.10 Alcohol abuse, uncomplicated; Y90.9 Presence of alcohol in blood, level not specified; Z79.899 Other long term (current) drug therapy; Z98.890 Other specified postprocedural states
CPT/HCPCS: 36415; 71045-TC; 80048-TC; 84484-TC; 85025-TC

== ENCOUNTER 2020-12-11 11:32 | Emergency (ER) | payer OTHER ==
[~2020-12-11] VITALS: Ht 182.9 cm; Wt 100.2 kg
--- NOTE | 2020-12-11 11:53 | NUR ---
TO ER BED 4, C/O L LOWER BACK PAIN X 1 MONTH WORST THE LAST 5 DAYS, AWAITING MD RENTERIA
[2020-12-11] MEDS ORDERED: CYCLOBENZAPRINE 10 MG TABLET PO ONE (12:00)
[2020-12-11] MEDS ORDERED: KETOROLAC TROMETHAMINE INJ 30 MG/ML VIAL IM ONE (12:00)
[2020-12-11] MEDS ORDERED: CYCLOBENZAPRINE 10 MG TABLET ONE (12:03)
[2020-12-11] MEDS ORDERED: KETOROLAC TROMETHAMINE INJ 30 MG/ML VIAL ONE (12:03)
[2020-12-11 12:56] VITALS: BP 121/85
[2020-12-11] MEDS ORDERED: CYCL5TAB PO (12:58)
[2020-12-11] MEDS ORDERED: IBUP-1957 PO (12:58)
== END 2020-12-11 13:02 | disposition home or self-care (01) ==
LOC: ER 11:32
DX: M54.5 Low back pain (principal); I10 Essential (primary) hypertension; F32.9 Major depressive disorder, single episode, unspecified; Z98.890 Other specified postprocedural states; Z79.899 Other long term (current) drug therapy
CPT/HCPCS: 96372; 99283; J1885

== ENCOUNTER 2020-12-21 12:21 | Emergency (ER) | payer OTHER ==
[~2020-12-21] VITALS: Ht 182.9 cm; Wt 99.8 kg
[~2020-12-21 12:21] MED LIST changes: +CYCL5TAB PO; +IBUP-1957 PO
--- NOTE | 2020-12-21 13:00 | NUR ---
patient came in to the er c/o noticed blood in the stool, and concern blood clot on BLE. On room air, breathing evenyl and unlabored. Connected to the monitor and pulse ox. kept comfortable. will continue to monitor accordingly.
[2020-12-21 13:14] LABS: BASOPHILS % (AUTO) 0.9 % (0.0-2.0); EOSINOPHILS % (AUTO) 6.6 % (0.0-6.0); HEMATOCRIT 37 % (39-51); HEMOGLOBIN 12.7 g/dL (13.5-17.5); LYMPHOCYTES # (AUTO) 1.5 K/uL (0.8-4.8); LYMPHOCYTES % (AUTO) 27.5 % (20.0-44.0); MEAN CORPUSCULAR HGB CONC 34 g/dl (31.0-36.0); MEAN CORPUSCULAR VOLUME 97 fL (80-96); MONOCYTES # (AUTO) 0.5 K/uL (0.1-1.30); MONOCYTES % (AUTO) 8.8 % (2.0-12.0); NEUTROPHILS # (AUTO) 3.1 K/uL (1.8-8.9); NEUTROPHILS % (AUTO) 56.2 % (43.0-81.0); PLATELET COUNT (AUTO) 226 K/uL (150-450); RED BLOOD CELL COUNT(AUTO) 3.82 MIL/uL (4.5-6.0); WHITE BLOOD COUNT (AUTO) 5.5 K/uL (4.3-11.0)
[2020-12-21 13:22] LABS: CALCIUM, SERUM 8.8 mg/dL (8.5-10.1); CREATININE 1.4 mg/dL (0.6-1.3); POTASSIUM 4.6 mmol/L (3.5-5.1)
[2020-12-21 14:19] VITALS: BP 118/81
--- NOTE | 2020-12-21 14:20 | NUR ---
Patient discharged to home in stable condition. Written and verbal after care instructions given. Patient verbalizes understanding of instruction.
== END 2020-12-21 14:20 | disposition home or self-care (01) ==
LOC: ER 13:20
DX: K64.9 Unspecified hemorrhoids (principal); R22.43 Localized swelling, mass and lump, lower limb, bilateral; I10 Essential (primary) hypertension; F32.9 Major depressive disorder, single episode, unspecified; Z98.890 Other specified postprocedural states; Z79.899 Other long term (current) drug therapy
CPT/HCPCS: 36415; 80048-TC; 85025-TC; 93970-TC

== ENCOUNTER 2021-02-14 09:47 | Emergency (ER) | payer OTHER ==
[~2021-02-14] VITALS: Ht 182.9 cm; Wt 99.8 kg
--- NOTE | 2021-02-14 09:57 | NUR ---
TO ER BED 9, BISELF C/O FACIAL SWELLING UPON WAKING UP THIS MORNING, DENIES TRAUMA/PAIN, ACCORDING TO THE PATIENT IT HAPPENED BEFORE FEW TIMES, AAOX3, BREATHING EVEN AND NON LABORED, CONNECTED TO MONITOR, CHANGED INTO A GOWN
[2021-02-14] MEDS ORDERED: EPINEPHRINE (1:1000) 1 MG/ML AMPUL ONE (10:29)
[2021-02-14] MEDS ORDERED: diphenhydrAMINE HCL 50 MG/ML VIAL ONE (10:29)
[2021-02-14] MEDS ORDERED: FAMOTIDINE/PF INJ 20 MG/2 ML VIAL IV ONE (10:29)
[2021-02-14] MEDS ORDERED: methylPREDNISolone SOD SUCC 125 MG/2ML VIAL ONE (10:29)
[2021-02-14] MEDS ORDERED: DIPH25CA83 PO (10:31)
[2021-02-14] MEDS ORDERED: FAMO-131 PO (10:31)
[2021-02-14] MEDS ORDERED: PRED20TA PO (10:31)
[2021-02-14] MEDS ORDERED: EPIN0.3P3 IJ (10:31)
[2021-02-14] MEDS: diphenhydrAMINE HCL 50 MG/ML VIAL IV ONE (10:49)
[2021-02-14] MEDS: IV NS 0.9% 1,000 ML BAG IV ONE (10:49)
[2021-02-14] MEDS: methylPREDNISolone SOD SUCC 125 MG/2ML VIAL IV ONE (10:49)
[2021-02-14] MEDS: FAMOTIDINE/PF INJ 20 MG/2 ML VIAL IV ONE (10:49)
[2021-02-14] MEDS: EPINEPHRINE (1:1000) MDV 30 MG/30ML VIAL SUBCUT ONE (10:51)
[2021-02-14 12:22] VITALS: BP 129/73
--- NOTE | 2021-02-14 12:22 | NUR ---
IV removed. Catheter intact and site benign. Pressure and 4x4 applied to site. No bleeding noted.Patient discharged to home in stable condition. Written and verbal after care instructions given. Patient verbalizes understanding of instruction.
== END 2021-02-14 12:23 | disposition home or self-care (01) ==
LOC: ER 09:51
DX: T78.3XXA Angioneurotic edema, initial encounter (principal); I10 Essential (primary) hypertension; F32.9 Major depressive disorder, single episode, unspecified; G40.909 Epilepsy, unspecified, not intractable, without status epilepticus; Z98.890 Other specified postprocedural states; Z79.899 Other long term (current) drug therapy
CPT/HCPCS: 96361; 96372; 96374; 96375; 99284; J0171; J1200; J2930; J3490; J7030

== ENCOUNTER 2021-03-13 12:43 | Emergency (ER) | payer OTHER ==
[~2021-03-13] VITALS: Ht 182.9 cm; Wt 99.8 kg
[~2021-03-13 12:43] MED LIST changes: +DIPH25CA83 PO; +EPIN0.3P3 IJ; +FAMO-131 PO; -LISI20TA30 PO; +PRED20TA PO
--- NOTE | 2021-03-13 13:01 | NUR ---
TO ER BED 14, C/O RIGHT FLANK PAIN/DYSURIA AND N/V X 2 DAYS, AAOX3, BREATHING EVEN AND NON LABORED, AWAITING MD RENTERIA
[2021-03-13 13:37] LABS: BASOPHILS # (AUTO) 0.1 K/uL (0.0-0.2); BASOPHILS % (AUTO) 1.9 % (0.0-2.0); EOSINOPHILS % (AUTO) 2.2 % (0.0-6.0); HEMATOCRIT 38 % (39-51); HEMOGLOBIN 12.7 g/dL (13.5-17.5); LYMPHOCYTES # (AUTO) 1.7 K/uL (0.8-4.8); LYMPHOCYTES % (AUTO) 34.4 % (20.0-44.0); MEAN CORPUSCULAR HGB CONC 33 g/dl (31.0-36.0); MEAN CORPUSCULAR VOLUME 97 fL (80-96); MONOCYTES # (AUTO) 0.6 K/uL (0.1-1.30); MONOCYTES % (AUTO) 12.2 % (2.0-12.0); NEUTROPHILS # (AUTO) 2.4 K/uL (1.8-8.9); NEUTROPHILS % (AUTO) 49.3 % (43.0-81.0); PLATELET COUNT (AUTO) 160 K/uL (150-450); RED BLOOD CELL COUNT(AUTO) 3.91 MIL/uL (4.5-6.0); WHITE BLOOD COUNT (AUTO) 4.9 K/uL (4.3-11.0)
[2021-03-13 13:54] LABS: ALBUMIN 3.5 g/dL (3.4-5.0); BILIRUBIN,DIRECT 0.1 mg/dL (0.0-0.2); BILIRUBIN,TOTAL 0.4 mg/dL (0.2-1.0); CALCIUM, SERUM 8.5 mg/dL (8.5-10.1); CREATININE 0.9 mg/dL (0.6-1.3); TOTAL PROTEIN, SERUM 8.2 g/dL (6.4-8.2)
--- NOTE | 2021-03-13 14:20 | NUR ---
IV PLACED ON RAC 20G.
[2021-03-13] MEDS ORDERED: ONDANSETRON HCL/PF 4 MG/2 ML VIAL ONE (14:29)
[2021-03-13] MEDS ORDERED: MORPHINE SULFATE INJ 4 MG/ML DISP.SYRIN ONE (14:29)
[2021-03-13] MEDS ORDERED: MORPHINE SULFATE INJ 2 MG/ML DISP.SYRIN IV ONE (14:30)
[2021-03-13] MEDS ORDERED: IV NS 0.9% 1,000 ML BAG IV ONE (14:30)
[2021-03-13] MEDS ORDERED: ONDANSETRON HCL/PF - ER 4 MG/2 ML VIAL IV ONE (14:30)
--- NOTE | 2021-03-13 14:46 | NUR ---
PT TAKEN TO CT
--- NOTE | 2021-03-13 14:57 | NUR ---
PT BACK FROM CT
--- NOTE | 2021-03-13 15:06 | NUR ---
CALLED BRISA FOR A READ
--- NOTE | 2021-03-13 15:36 | NUR ---
CALLED BRISA AGAIN FOR READ
[2021-03-13 16:12] LABS: BILIRUBIN,URINE Negative (NEGATIVE); LEUKOCYTE ESTERASE ,URINE Negative (NEGATIVE); NITRITE, URINE Negative (NEGATIVE); PH,URINE 5.5 (5.0-8.0); PROTEIN,URINE Negative (NEGATIVE); UGLUCOSE Negative (NEGATIVE); UROBILINOGEN,URINE 0.2 EU/dL (0.2)
[2021-03-13 16:13] LABS: COLOR,URINE STRAW (YELLOW)
[2021-03-13] MEDS ORDERED: CYCL10TA9 PO (16:47)
[2021-03-13] MEDS ORDERED: IBUP-1955 PO (16:47)
[2021-03-13 17:01] VITALS: BP 135/97
== END 2021-03-13 17:01 | disposition home or self-care (01) ==
LOC: ER 12:47
DX: R10.9 Unspecified abdominal pain (principal); R11.2 Nausea with vomiting, unspecified; M54.50 Low back pain, unspecified; I10 Essential (primary) hypertension; F32.9 Major depressive disorder, single episode, unspecified; Z98.890 Other specified postprocedural states; Z79.899 Other long term (current) drug therapy
CPT/HCPCS: 36415; 74176; 80048; 80076; 81003; 83690; 85025; 87086; 96361; 96374; 96375; 99284; J2270; J2405 ×2; J7030

== ENCOUNTER 2021-03-29 13:54 | Emergency (ER) | payer OTHER ==
[~2021-03-29] VITALS: Ht 172.7 cm; Wt 79.8 kg
[~2021-03-29 13:54] MED LIST changes: +CYCL10TA9 PO; +IBUP-1955 PO
--- NOTE | 2021-03-29 14:02 | NUR ---
BIB RA 39,CHEST PAIN 12/04 RADIATING TO LEFT ARM X 1 HR. C/O HEADACHE /10. IN ROOM AIR AND DENIES SOB. RESPIRATION REGULAR AND UNLABORED. ATTACHED TO THE MONITOR. WARM BLANKET PROVIDED FOR COMFORT. WILL CONTINUE TO MONITOR THE PATIENT.
[2021-03-29 15:03] LABS: BASOPHILS % (AUTO) 0.3 % (0.0-2.0); EOSINOPHILS % (AUTO) 1.4 % (0.0-6.0); HEMATOCRIT 38 % (39-51); HEMOGLOBIN 12.7 g/dL (13.5-17.5); LYMPHOCYTES # (AUTO) 1.5 K/uL (0.8-4.8); LYMPHOCYTES % (AUTO) 31.5 % (20.0-44.0); MEAN CORPUSCULAR HGB CONC 34 g/dl (31.0-36.0); MEAN CORPUSCULAR VOLUME 97 fL (80-96); MONOCYTES # (AUTO) 0.3 K/uL (0.1-1.30); MONOCYTES % (AUTO) 7.2 % (2.0-12.0); NEUTROPHILS # (AUTO) 2.8 K/uL (1.8-8.9); NEUTROPHILS % (AUTO) 59.6 % (43.0-81.0); PLATELET COUNT (AUTO) 188 K/uL (150-450); RED BLOOD CELL COUNT(AUTO) 3.88 MIL/uL (4.5-6.0); WHITE BLOOD COUNT (AUTO) 4.7 K/uL (4.3-11.0)
[2021-03-29 15:13] LABS: CALCIUM, SERUM 8.4 mg/dL (8.5-10.1); CARBON DIOXIDE 30 mmol/L (21-32); CHLORIDE 103 mmol/L (98-107); CREATININE 1.1 mg/dL (0.6-1.3); GLUCOSE 127 mg/dL (74-106); POTASSIUM 3.9 mmol/L (3.5-5.1); SODIUM SERUM 142 mmol/L (136-145); UREA NITROGEN, BLOOD 14 mg/dL (7-18)
--- NOTE | 2021-03-29 20:28 | NUR ---
Patient discharged to home in stable condition. Written and verbal after care instructions given. Patient verbalizes understanding of instruction. PT noted with steady gait.
[2021-03-30 02:05] VITALS: BP 149/77
== END 2021-03-29 20:30 | disposition home or self-care (01) ==
LOC: ER 13:55
DX: R07.89 Other chest pain (principal); R60.0 Localized edema; F10.129 Alcohol abuse with intoxication, unspecified; I10 Essential (primary) hypertension; F32.9 Major depressive disorder, single episode, unspecified; Z98.890 Other specified postprocedural states; Z79.899 Other long term (current) drug therapy; Y90.7 Blood alcohol level of 200-239 mg/100 ml
CPT/HCPCS: 36415; 71045-TC; 80048-TC; 84484-TC; 85025-TC; 93970-TC; G0480

== ENCOUNTER 2022-09-01 11:49 | Emergency (ER) | payer OTHER ==
[~2022-09-01] VITALS: Ht 182.9 cm; Wt 99.8 kg
[2022-09-01 11:49] VITALS: BP 136/75
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
--- NOTE | 2022-09-01 12:41 | NUR ---
PT LEFT THE FACILITY WITHOUT BEING SWABBED FOR COVID OR FLU TEST.
--- NOTE | 2022-09-01 12:41 | NUR ---
PT EVALUATED BY DR MARCUS AND LEFT WITHOUT RECIEVING DISCHARGE PAPERS OR BEING SWABBED.
== END 2022-09-01 12:42 | disposition home or self-care (01) ==
LOC: ER 11:56
DX: J06.9 Acute upper respiratory infection, unspecified (principal); M79.604 Pain in right leg; I10 Essential (primary) hypertension; F32.A Depression, unspecified; Z79.899 Other long term (current) drug therapy